=== PATIENT | female | born 1970 | race Caucasian/White ===

== ENCOUNTER 2018-04-04 10:04 | Emergency (ER) | payer MEDICAID ==
[2018-04-04 10:21] VITALS: BP 106/62
[2018-04-04] MEDS ORDERED: GENTAMICIN EACHEYE STA (11:55)
--- NOTE | 2018-04-04 11:59 | ED Physician Documentation ---
PD HPI OPHTHO - Stated complaint Stated Complaint: BILAT EYE IRRITATION - Chief complaint Chief Complaint: Heent - History obtained from History obtained from: Patient - History of Present Illness Timing - onset: How many days ago (2) Timing - duration: Days (2) Timing - details: Still present Associated symptoms: Redness, Discharge Contributing factors: Exposed to conjunctivitis Similar symptoms before: Has not had sx before - Additional information Additional information: The patient is a 47-year-old female who presents with irritation of both eyes. Her symptoms started 2 days ago and it persisted since that time. She reports excessive tearing, as well as crusting of her eyelids. She has been exposed to a dog that was diagnosed with conjunctivitis and underwent treatment. She normally wears glasses, but currently does not have glasses, and states she cannot afford to replace the pair she has lost. Review of Systems Constitutional: denies: Fever Eyes: reports: Discharge, Irritation. denies: Decreased vision Nose: denies: Congestion Throat: denies: Sore throat Respiratory: denies: Cough GI: denies: Nausea, Vomiting Skin: denies: Rash Neurologic: denies: Headache PD PAST MEDICAL HISTORY - Past Medical History Cardiovascular: Hypertension Respiratory: Asthma, Shortness of breath Endocrine/Autoimmune: None GI: GERD HOOD FITTER: None : None HEENT: None Psych: Depression, Anxiety, Bipolar disorder, Panic attacks, Post traumatic stress disorder Musculoskeletal: Osteoarthritis Derm: None - Past Surgical History Past Surgical History: Yes Ortho: Carpal Tunnel surgery /HOOD FITTER: Tubal ligation - Present Medications Home Medications: Ambulatory Orders Medication Instructions Recorded Confirmed Gabapentin [Neurontin] 800 mg PO TID 09/11/13 04/04/18 Meloxicam [Mobic] 15 mg PO DAILY 09/11/13 04/04/18 Montelukast Sodium [Singulair] 10 mg PO DAILY 09/11/13 04/04/18 Pantoprazole Sodium [Protonix] 40 mg PO BID #60 tablet 09/11/13 04/04/18 hydrOXYzine PAMOATE [Vistaril] 100 mg PO BID 09/11/13 04/04/18 clonazePAM [Klonopin] 1 mg BID 11/12/13 04/04/18 Aspirin [Aspirin EC] 81 mg PO DAILY 04/04/18 04/04/18 Lurasidone HCl [Latuda] 60 mg PO DAILY 04/04/18 04/04/18 Tramadol HCl 100 mg PO TID 04/04/18 04/04/18 Valacyclovir HCl [Valacyclovir] 1,000 mg PO DAILY PRN 04/04/18 04/04/18 - Allergies Allergies/Adverse Reactions: Allergies Allergy/AdvReac Type Severity Reaction Status Date / Time carbamazepine [From Tegretol] Allergy Rash Verified 04/04/18 10:23 erythromycin base Allergy Emesis Verified 04/04/18 10:23 [Erythromycin Base] ketorolac [From Toradol] Allergy Rash Verified 04/04/18 10:23 latex Allergy Rash Verified 04/04/18 10:23 Tetracyclines Allergy Rash Verified 04/04/18 10:23 - Social History Does the pt smoke?: No Smoking Status: Never smoker Does the pt drink ETOH?: No Does the pt have substance abuse?: No - Immunizations Immunizations are current?: Yes - POLST Patient has POLST: No PD ED PE NORMAL - Vitals Vital signs reviewed: Yes (normal) - General General: Alert and oriented X 3, Well developed/nourished - HEENT HEENT: Atraumatic, PERRL, EOMI, Ears normal, Pharynx benign, Other (Conjunctival erythema bilaterally, with excessive tearing. There is no purulent discharge detected. Visual acuity is 20/50 in each eye (without glasses). There is no swelling of the eyelids.) - Neck Neck: Supple, no meningeal sign, No adenopathy - Respiratory Respiratory: No respiratory distress - Derm Derm: No rash - Neuro Neuro: Alert and oriented X 3, Normal speech Results - Vitals Vitals: Oxygen O2 Source Room air PD MEDICAL DECISION MAKING - ED course Complexity details: considered differential, d/w patient ED course: The patient's presentation is most consistent with bilateral conjunctivitis. Her presentation does not suggest ocular foreign body, glaucoma, or uveitis. Treatment in the emergency department included administration of gentamicin ophthalmic ointment in each eye. The remainder of the tube was dispensed for her use at home. I discussed with her the expected course of illness, outpatient treatment and follow-up, as well as potentially worrisome signs or symptoms that should prompt reevaluation in the emergency department. Departure - Departure Disposition: 01 Home, Self Care Clinical Impression: Bilateral conjunctivitis Qualifiers: Conjunctivitis type: unspecified Qualified Code(s): H10.9 - Unspecified conjunctivitis Condition: Stable Instructions: ED Conjunctivitis Nonspecific Follow-Up: Zeeshan You MD [Primary Care Provider] - Comments: There is apply antibiotic ointment in each eye 4 times daily today and tomorrow. Follow-up with your primary physician or return to the emergency department if you develop increasing irritation in your eyes, or otherwise worsening symptoms. Discharge Date/Time: 04/04/18 12:12
== END 2018-04-04 12:12 | disposition home or self-care (01) ==
LOC: ED 10:04
DX: H10.9 Unspecified conjunctivitis (principal); I10 Essential (primary) hypertension; Z79.1 Long term (current) use of non-steroidal anti-inflammatories (NSAID); Z79.82 Long term (current) use of aspirin
CPT/HCPCS: 99282; 99283; A9270

== ENCOUNTER 2018-06-21 15:23 | Emergency (ER) | payer MEDICAID ==
--- NOTE | 2018-06-21 15:31 | ED Physician Documentation ---
PD HPI ALTERED MENTAL STATUS - Stated complaint Stated Complaint: DIZZY,DRY MOUTH - Chief complaint Chief Complaint: Neuro - History obtained from History obtained from: Patient PD PAST MEDICAL HISTORY - Past Medical History Cardiovascular: Hypertension Respiratory: Asthma, Shortness of breath Endocrine/Autoimmune: None GI: GERD RESEARCH STATISTICIAN: None : None HEENT: None Psych: Depression, Anxiety, Bipolar disorder, Panic attacks, Post traumatic stress disorder Musculoskeletal: Osteoarthritis Derm: None - Past Surgical History Past Surgical History: Yes Ortho: Carpal Tunnel surgery /RESEARCH STATISTICIAN: Tubal ligation - Present Medications Home Medications: Ambulatory Orders Medication Instructions Recorded Confirmed Gabapentin [Neurontin] 800 mg PO TID 09/11/13 06/21/18 Meloxicam [Mobic] 15 mg PO DAILY 09/11/13 06/21/18 Montelukast Sodium [Singulair] 10 mg PO DAILY 09/11/13 06/21/18 Pantoprazole Sodium [Protonix] 40 mg PO BID #60 tablet. 09/11/13 06/21/18 hydrOXYzine PAMOATE [Vistaril] 100 mg PO BID 09/11/13 06/21/18 clonazePAM [Klonopin] 1 mg PO BID 11/12/13 06/21/18 Aspirin [Aspirin EC] 81 mg PO DAILY 04/04/18 06/21/18 Lurasidone HCl [Latuda] 60 mg PO DAILY 04/04/18 06/21/18 Tramadol HCl 100 mg PO TID 04/04/18 06/21/18 Valacyclovir HCl [Valacyclovir] 1,000 mg PO DAILY PRN 04/04/18 06/21/18 - Allergies Allergies/Adverse Reactions: Allergies Allergy/AdvReac Type Severity Reaction Status Date / Time carbamazepine [From Tegretol] Allergy Rash Verified 04/04/18 10:23 erythromycin base Allergy Emesis Verified 04/04/18 10:23 [Erythromycin Base] ketorolac [From Toradol] Allergy Rash Verified 04/04/18 10:23 latex Allergy Rash Verified 04/04/18 10:23 Tetracyclines Allergy Rash Verified 06/21/18 15:29 - Social History Does the pt smoke?: No Smoking Status: Never smoker Does the pt drink ETOH?: No Does the pt have substance abuse?: No - Immunizations Immunizations are current?: Yes - POLST Patient has POLST: No Results - Vitals Vitals: Vital Signs - 24 hr 06/21/18 15:27 Temperature 35.8 C L Heart Rate 88 Respiratory 18 Rate Blood Pressure 143/77 H O2 Saturation 95 Oxygen O2 Source Room air
[2018-06-21] MEDS ORDERED: SODIUM CHLORIDE 0.9% 1,000 ML IV ONE (16:05)
[2018-06-21 16:35] LABS: BASOPHILS % (AUTO) 0.8 %; EOSINOPHILS # (AUTO) 0.2 10^3/uL (0.0-0.7); EOSINOPHILS % (AUTO) 4.9 %; HGB - HEMOGLOBIN 12.3 g/dL (12.0-16.0); LYMPHOCYTES # (AUTO) 1.8 10^3/uL (1.5-3.5); LYMPHOCYTES % (AUTO) 35.8 %; MEAN CORPUSCULAR HEMOGLOBIN 27.1 pg (27.0-31.0); MEAN CORPUSCULAR HGB CONC 32.7 g/dL (32.0-36.0); MEAN CORPUSCULAR VOLUME 82.7 fL (81.0-99.0); MEAN PLATELET VOLUME 7.6 fL (7.9-10.8); MONOCYTES # (AUTO) 0.3 10^3/uL (0.0-1.0); MONOCYTES % (AUTO) 5.2 %; NEUTROPHILS # (AUTO) 2.7 10^3/uL (1.5-6.6); NEUTROPHILS % (AUTO) 53.3 %; PLT - PLATELET COUNT 180 10^3/uL (130-450); RED BLOOD COUNT 4.53 10^6/uL (4.20-5.40); RED CELL DISTRIBUTION WIDTH 14.6 % (12.0-15.0)
[2018-06-21 16:50] LABS: MUDS CUTOFF CONCENTRATIONS CUTOFF CONC BELOW:
[2018-06-21 17:01] LABS: ALBUMIN 4.1 g/dL (3.2-5.5); ALBUMIN/GLOBULIN RATIO 1.4 (1.0-2.2); ALKALINE PHOSPHATASE 57 IU/L (42-121); ALT ALANINE AMINOTRANSFERASE 16 IU/L (10-60); AST ASPARTATE AMINOTRANSFERASE 17 IU/L (10-42); BILIRUBIN,TOTAL 0.4 mg/dL (0.2-1.0); BUN - BLOOD UREA NITROGEN 18 mg/dL (6-20); CALCIUM 9.4 mg/dL (8.5-10.3); CARBON DIOXIDE - CO2 26 mmol/L (21-32); CHLORIDE 105 mmol/L (101-111); GFR - MDRD 59 (>89); GLUCOSE 97 mg/dL (70-100); LIPASE 29 U/L (22-51); MAGNESIUM 2.2 mg/dL (1.7-2.8); SODIUM 139 mmol/L (135-145)
[2018-06-21 17:16] LABS: AMPHETAMINE SCREEN,URINE NEGATIVE (NEGATIVE); BENZODIAZEPINES SCREEN, URINE POSITIVE (NEGATIVE); COCAINE SCREEN URINE NEGATIVE (NEGATIVE); LEUKOCYTE ESTERASE, URINE SMALL (NEGATIVE); METHADONE SCREEN, URINE NEGATIVE (NEGATIVE); METHAMPHETAMINES SCREEN, URINE NEGATIVE (NEGATIVE); NITRITE,URINE POSITIVE (NEGATIVE); OCCULT BLOOD,URINE NEGATIVE (NEGATIVE); OPIATE SCREEN, URINE NEGATIVE (NEGATIVE); OXYCODONE SCREEN, URINE NEGATIVE (NEGATIVE); PROPOXYPHENE SCREEN, URINE NEGATIVE (NEGATIVE); TRICYCLIC ANTIDEPRESSANT,URINE NEGATIVE (NEGATIVE)
[2018-06-21 17:21] LABS: BILIRUBIN,URINE NEGATIVE (NEGATIVE); CLARITY,URINE HAZY (CLEAR); ICTOTEST,URINE NEGATIVE
[2018-06-21 17:24] LABS: CORTISOL 3.1 ug/dL
[2018-06-21 17:27] LABS: THYROID STIMULATING HORMONE 1.28 uIU/mL (0.34-5.60)
[2018-06-21 17:58] LABS: BACTERIA,URINE Many /HPF (None Seen); RBC,URINE 0-5 /HPF (0-5); SQUAMOUS EPITHELIAL CELL,UR MANY Squamous (<= Few)
[2018-06-21] MEDS ORDERED: cefTRIAXone 1 GM VIAL IVP STA (18:29)
--- NOTE | 2018-06-21 18:31 | ED Physician Documentation ---
PD HPI ALTERED MENTAL STATUS - Stated complaint Stated Complaint: DIZZY,DRY MOUTH - Chief complaint Chief Complaint: Neuro - History obtained from History obtained from: Patient, Family - History of Present Illness Timing - onset: How many days ago (several days to a week) Timing - duration: Days Timing - details: Gradual onset, Still present, Waxing and waning Quality / character: Less responsive (sleepy), Confused, Other (complains of dry mouth and lightheaded; daughter says she is sleepy and off balance walking.) Associated symptoms: General weakness, Other (weight loss of 60-70 lbs over the past 3-4 months without dieting per se.). No: Fever, Headache, Stiff neck, Dyspnea, Cough, NVD Contributing factors: No: Diabetic Basline status: Alert and oriented X 3, Ambulatory Similar symptoms before: Has not had sx before Recently seen: Not recently seen Review of Systems Constitutional: denies: Fever, Chills, Myalgias Nose: denies: Rhinorrhea / runny nose, Congestion Throat: denies: Sore throat Respiratory: denies: Cough GI: reports: Other (less appetite for past 2-3 months). denies: Abdominal Pain, Nausea, Vomiting, Diarrhea : denies: Dysuria, Frequency Skin: denies: Rash, Lesions Neurologic: reports: Generalized weakness. denies: Focal weakness, Numbness, Near syncope, Confused PD PAST MEDICAL HISTORY - Past Medical History Past Medical History: Yes Cardiovascular: Hypertension Respiratory: Asthma, Shortness of breath Endocrine/Autoimmune: None GI: GERD REC THERAPIST: None : None HEENT: None Psych: Depression, Anxiety, Bipolar disorder, Panic attacks, Post traumatic stress disorder Musculoskeletal: Osteoarthritis Derm: None - Past Surgical History Past Surgical History: Yes Ortho: Carpal Tunnel surgery /REC THERAPIST: Tubal ligation - Present Medications Home Medications: Ambulatory Orders Medication Instructions Recorded Confirmed Gabapentin [Neurontin] 800 mg PO TID 09/11/13 06/21/18 Meloxicam [Mobic] 15 mg PO DAILY 09/11/13 06/21/18 Montelukast Sodium [Singulair] 10 mg PO DAILY 09/11/13 06/21/18 Pantoprazole Sodium [Protonix] 40 mg PO BID #60 tablet. 09/11/13 06/21/18 hydrOXYzine PAMOATE [Vistaril] 100 mg PO BID 09/11/13 06/21/18 clonazePAM [Klonopin] 1 mg PO BID 11/12/13 06/21/18 Aspirin [Aspirin EC] 81 mg PO DAILY 04/04/18 06/21/18 Lurasidone HCl [Latuda] 60 mg PO DAILY 04/04/18 06/21/18 Tramadol HCl 100 mg PO TID 04/04/18 06/21/18 Valacyclovir HCl [Valacyclovir] 1,000 mg PO DAILY PRN 04/04/18 06/21/18 Cephalexin [Keflex] 500 mg PO TID #20 capsule 06/21/18 - Allergies Allergies/Adverse Reactions: Allergies Allergy/AdvReac Type Severity Reaction Status Date / Time carbamazepine [From Tegretol] Allergy Rash Verified 04/04/18 10:23 erythromycin base Allergy Emesis Verified 04/04/18 10:23 [Erythromycin Base] ketorolac [From Toradol] Allergy Rash Verified 04/04/18 10:23 latex Allergy Rash Verified 04/04/18 10:23 Tetracyclines Allergy Rash Verified 06/21/18 15:29 - Social History Does the pt smoke?: No Smoking Status: Never smoker Does the pt drink ETOH?: No Does the pt have substance abuse?: No - Immunizations Immunizations are current?: Yes - POLST Patient has POLST: No PD ED PE NORMAL - Vitals Vital signs reviewed: Yes - General General: No acute distress, Well developed/nourished. No: Alert and oriented X 3 (alert and oriented but somewhat somnolent. ) - HEENT HEENT: PERRL, EOMI (nonicteric), Moist mucous membranes, Pharynx benign - Neck Neck: Supple, no meningeal sign, No adenopathy - Cardiac Cardiac: RRR, No murmur - Respiratory Respiratory: Clear bilaterally - Abdomen Abdomen: Normal bowel sounds, Soft, Non tender, Non distended - Female Female : Deferred - Rectal Rectal: Deferred - Back Back: No CVA TTP - Derm Derm: Normal color, Warm and dry - Extremities Extremities: No tenderness to palpate, Normal ROM s pain, No edema, No calf tenderness / cord - Neuro Neuro: Alert and oriented X 3, No motor deficit, Normal speech Eye Opening: To Voice Motor: Obeys Commands Verbal: Oriented GCS Score: 14 Results - Vitals Vitals: Oxygen O2 Source Room air - Labs Labs: Laboratory Tests 06/21/18 06/21/18 06/21/18 16:30 16:30 16:30 WBC 5.0 RBC 4.53 Hgb 12.3 Hct 37.5 MCV 82.7 MCH 27.1 MCHC 32.7 RDW 14.6 Plt Count 180 MPV 7.6 L Neut # (Auto) 2.7 Lymph # (Auto) 1.8 [place] # (Auto) 0.3 Eos # (Auto) 0.2 Baso # (Auto) 0.0 Absolute Nucleated RBC 0.00 Nucleated RBC % 0.0 ESR 15 Sodium 139 Potassium 3.7 Chloride 105 Carbon Dioxide 26 Anion Gap 8.0 BUN 18 Creatinine 1.0 Estimated GFR (MDRD) 59 L Glucose 97 Calcium 9.4 Magnesium 2.2 Total Bilirubin 0.4 AST 17 ALT 16 Alkaline Phosphatase 57 Total Protein 7.0 Albumin 4.1 Globulin 2.9 Albumin/Globulin Ratio 1.4 Lipase 29 TSH Cortisol Urine Color Urine Clarity Urine pH Ur Specific [place] Urine Protein Urine Glucose (UA) Urine Ketones Urine Occult Blood Urine Nitrite Urine Bilirubin Urine Urobilinogen Ur Leukocyte Esterase Urine RBC Urine WBC Ur Squamous Epith Cells Urine Bacteria Ur Microscopic Review Urine Culture Comments Urine Opiates Screen Ur Oxycodone Screen Urine Methadone Screen Ur Propoxyphene Screen Ur Barbiturates Screen Ur Tricyclics Screen Ur Phencyclidine Scrn Ur Amphetamine Screen U Methamphetamines Scrn U Benzodiazepines Scrn Urine Cocaine Screen U Cannabinoids Screen Ethyl Alcohol < 5.0 06/21/18 06/21/18 16:30 16:47 WBC RBC Hgb Hct MCV MCH MCHC RDW Plt Count MPV Neut # (Auto) Lymph # (Auto) [place] # (Auto) Eos # (Auto) Baso # (Auto) Absolute Nucleated RBC Nucleated RBC % ESR Sodium Potassium Chloride Carbon Dioxide Anion Gap BUN Creatinine Estimated GFR (MDRD) Glucose Calcium Magnesium Total Bilirubin AST ALT Alkaline Phosphatase Total Protein Albumin Globulin Albumin/Globulin Ratio Lipase TSH 1.28 Cortisol 3.1 Urine Color DK. ORANGE Urine Clarity HAZY Urine pH 5.0 Ur Specific [place] >=1.030 H Urine Protein [employer] Urine Glucose (UA) [employer] Urine Ketones Not Reportable Urine Occult Blood NEGATIVE Urine Nitrite POSITIVE H Urine Bilirubin NEGATIVE Urine Urobilinogen [employer] Ur Leukocyte Esterase SMALL H Urine RBC 0-5 Urine WBC 11-25 H Ur Squamous Epith Cells MANY Squamous H Urine Bacteria Many H Ur Microscopic Review INDICATED Urine Culture Comments NOT INDICATED Urine Opiates Screen NEGATIVE Ur Oxycodone Screen NEGATIVE Urine Methadone Screen NEGATIVE Ur Propoxyphene Screen NEGATIVE Ur Barbiturates Screen NEGATIVE Ur Tricyclics Screen NEGATIVE Ur Phencyclidine Scrn NEGATIVE Ur Amphetamine Screen NEGATIVE U Methamphetamines Scrn NEGATIVE U Benzodiazepines Scrn POSITIVE H Urine Cocaine Screen NEGATIVE U Cannabinoids Screen NEGATIVE Ethyl Alcohol PD MEDICAL DECISION MAKING - ED course Complexity details: considered differential (symptoms seem likely med side effects. She has had large weight loss (without trying, so separate issue and got labs) of 60-70 lbs and so prior doses may be having more effect. Will look at meds to see which likely correlate with symptoms. ), d/w patient Departure - Departure Disposition: 01 Home, Self Care Clinical Impression: Weight loss, Medication side effects UTI (urinary tract infection) Qualifiers: Urinary tract infection type: acute cystitis Hematuria presence: without hematuria Qualified Code(s): N30.00 - Acute cystitis without hematuria Altered mental status Qualifiers: Altered mental status type: stupor Qualified Code(s): R40.1 - Stupor Condition: Stable Record reviewed to determine appropriate education?: Yes Instructions: ED UTI Cystitis Female Follow-Up: Zeeshan You MD [Primary Care Provider] - Prescriptions: Cephalexin [Keflex] 500 mg PO TID #20 capsule Comments: I agree with you that your symptoms are likely related to medications that you are on and likely are needing to have the dosages decreased. At this point I would start with decreasing your gabapentin from 800 mg 3 times a day down to twice a day. Subsequently that can get changed to 600 mg 3 times a day on re- prescription but for now will use the medications you have. I would also decrease your hydroxyzine from 100 mg twice a day to 50 mg twice a day. For now keep your other medications the same. Drink lots of fluids. He also have a bladder infection and take cephalexin 3 times a day for a week. Follow-up with your primary care this coming week as planned and see how much better you are feeling.So the summary is: cephalexin 3 times a day for a week Decrease gabapentin 800 from three times daily to twice a day Decrease hydroxyzine from 100 mg twice a day down to 50 mg twice a day Discharge Date/Time: 06/21/18 18:49
[2018-06-21 18:44] VITALS: BP 132/83
== END 2018-06-21 18:49 | disposition home or self-care (01) ==
LOC: ED 15:23
DX: R63.4 Abnormal weight loss (principal); T50.905A Adverse effect of unspecified drugs, medicaments and biological substances, initial encounter; N30.00 Acute cystitis without hematuria; R40.1 Stupor; I10 Essential (primary) hypertension
CPT/HCPCS: 36415; 80053; 80306; 80320; 81001; 81003; 82533; 83690; 83735; 84443; 85025; 85651; 87086; 93005; 96361; 96374; 99283; 99284

== ENCOUNTER 2019-06-17 20:07 | Emergency (ER) | payer MEDICAID ==
[2019-06-17 20:31] LABS: BASOPHILS % (AUTO) 0.4 %; EOSINOPHILS # (AUTO) 0.1 10^3/uL (0.0-0.7); EOSINOPHILS % (AUTO) 1.9 %; HGB - HEMOGLOBIN 14.7 g/dL (12.0-16.0); LYMPHOCYTES # (AUTO) 1.2 10^3/uL (1.5-3.5); LYMPHOCYTES % (AUTO) 17.5 %; MEAN CORPUSCULAR HEMOGLOBIN 28.9 pg (27.0-31.0); MEAN CORPUSCULAR HGB CONC 32.5 g/dL (32.0-36.0); MONOCYTES # (AUTO) 0.2 10^3/uL (0.0-1.0); MONOCYTES % (AUTO) 3.6 %; NEUTROPHILS # (AUTO) 5.1 10^3/uL (1.5-6.6); NEUTROPHILS % (AUTO) 76.3 %; PLT - PLATELET COUNT 222 10^3/uL (130-450); RED BLOOD COUNT 5.09 10^6/uL (4.20-5.40); RED CELL DISTRIBUTION WIDTH 13.2 % (12.0-15.0); WHITE BLOOD COUNT 6.7 x10^3/uL (4.8-10.8)
[2019-06-17 20:49] LABS: ALBUMIN 4.6 g/dL (3.2-5.5); ALBUMIN/GLOBULIN RATIO 1.2 (1.0-2.2); BILIRUBIN,TOTAL 2.9 mg/dL (0.2-1.0); CALCIUM 9.4 mg/dL (8.5-10.3); CREATININE 0.9 mg/dL (0.4-1.0); TOTAL PROTEIN 8.3 g/dL (6.7-8.2)
--- NOTE | 2019-06-17 20:54 | XRAY Report ---
Reason: chest pain Procedure Date: 06/17/2019 Accession Number: [id number] / [id number] Procedure: XR - Chest 1 View X-Ray CPT Code: 03304 Final Report FULL RESULT: EXAM: CHEST RADIOGRAPHY EXAM DATE: 06/17/2019 08:44 PM. CLINICAL HISTORY: Chest pain. Shortness of breath. Vomiting. COMPARISON: None. TECHNIQUE: Upright AP view. FINDINGS: Lungs/Pleura: No focal opacities evident. No pleural effusion. No pneumothorax. Mediastinum: Within exam limitations, the cardiomediastinal contour is normal. Other: No pneumoperitoneum or gaseous distention of the stomach. IMPRESSION: Normal single view chest. RADIA
[2019-06-17] MEDS ORDERED: MORPHINE 2 MG/ML CARPUJECT IVP STA (21:19)
[2019-06-17] MEDS ORDERED: ONDANSETRON 4 MG/2 ML VIAL IVP STA (21:38)
--- NOTE | 2019-06-17 22:19 | ED Physician Documentation ---
History of Present Illness - Stated complaint Stated Complaint: CP - Chief complaint Chief Complaint: Cardiac - History obtained from History obtained from: Patient (Patient with history anxiety presented with substernal chest pain that is sharp in nature for last 3 days. That has been intermittent nausea sensation that is associated with chest pain has been intermittent. Nonradiating. No fever no chills no cough no congestion. In emergency room patient is alert and oriented x3. CardiovascularRisk factor: none) - History of Present Illness Timing: How many days ago (3) Pain level max: 6 Pain level now: 6 Review of Systems Ten Systems: 10 systems reviewed and negative Constitutional: reports: Reviewed and negative Eyes: reports: Reviewed and negative Ears: reports: Reviewed and negative Nose: reports: Reviewed and negative Throat: reports: Reviewed and negative Cardiac: reports: Chest pain / pressure Respiratory: reports: Reviewed and negative GI: reports: Reviewed and negative : reports: Reviewed and negative Skin: reports: Reviewed and negative Musculoskeletal: reports: Reviewed and negative Neurologic: reports: Reviewed and negative Psychiatric: reports: Reviewed and negative Endocrine: reports: Reviewed and negative Immunocompromised: reports: Reviewed and negative PD PAST MEDICAL HISTORY - Past Medical History Past Medical History: Yes Cardiovascular: Hypertension Respiratory: Asthma, Shortness of breath Endocrine/Autoimmune: None GI: GERD LAB COORDINATOR: None : None HEENT: None Psych: Depression, Anxiety, Bipolar disorder, Panic attacks, Post traumatic stress disorder Musculoskeletal: Osteoarthritis Derm: None - Past Surgical History Past Surgical History: Yes Ortho: Carpal Tunnel surgery /LAB COORDINATOR: Tubal ligation - Present Medications Home Medications: Ambulatory Orders Medication Instructions Recorded Confirmed Gabapentin [Neurontin] 800 mg PO TID 09/11/13 06/21/18 Meloxicam [Mobic] 15 mg PO DAILY 09/11/13 06/21/18 Montelukast Sodium [Singulair] 10 mg PO DAILY 09/11/13 06/21/18 Pantoprazole Sodium [Protonix] 40 mg PO BID #60 tablet. 09/11/13 06/21/18 hydrOXYzine PAMOATE [Vistaril] 100 mg PO BID 09/11/13 06/21/18 clonazePAM [Klonopin] 1 mg PO BID 11/12/13 06/21/18 Aspirin [Aspirin EC] 81 mg PO DAILY 04/04/18 06/21/18 Lurasidone HCl [Latuda] 60 mg PO DAILY 04/04/18 06/21/18 Tramadol HCl 100 mg PO TID 04/04/18 06/21/18 Valacyclovir HCl [Valacyclovir] 1,000 mg PO DAILY PRN 04/04/18 06/21/18 Cephalexin [Keflex] 500 mg PO TID #20 capsule 06/21/18 Ondansetron Odt [Zofran] 4 mg TL Q6H PRN #10 tablet 06/17/19 traMADol [Ultram] 50 mg PO ONCE #10 tablet 06/17/19 - Allergies Allergies/Adverse Reactions: Allergies Allergy/AdvReac Type Severity Reaction Status Date / Time carbamazepine [From Tegretol] Allergy Rash Verified 04/04/18 10:23 erythromycin base Allergy Emesis Verified 04/04/18 10:23 [Erythromycin Base] ketorolac [From Toradol] Allergy Rash Verified 04/04/18 10:23 latex Allergy Rash Verified 04/04/18 10:23 Tetracyclines Allergy Rash Verified 06/21/18 15:29 - Social History Does the pt smoke?: No Smoking Status: Never smoker Does the pt drink ETOH?: No Does the pt have substance abuse?: No - Immunizations Immunizations are current?: Yes - POLST Patient has POLST: No PD ED PE NORMAL - Vitals Vital signs reviewed: Yes - General General: Alert and oriented X 3, No acute distress - HEENT HEENT: PERRL - Neck Neck: Supple, no meningeal sign - Cardiac Cardiac: RRR, No murmur - Respiratory Respiratory: Clear bilaterally - Abdomen Abdomen: Normal bowel sounds, Soft, Non tender, Non distended - Derm Derm: Warm and dry - Extremities Extremities: No deformity - Neuro Neuro: Alert and oriented X 3 Eye Opening: Spontaneous Motor: Obeys Commands Verbal: Oriented GCS Score: 15 - Psych Psych: Normal mood, Normal affect Results - Vitals Vitals: Vital Signs - 24 hr 06/17/19 06/17/19 06/17/19 20:10 22:10 23:56 Temperature 36.2 C L 37.0 C Heart Rate 74 62 76 Respiratory 18 21 18 Rate Blood Pressure 117/79 109/80 99/76 O2 Saturation 99 100 98 Oxygen O2 Source Room air - EKG (time done) No standard instances Rate: Rate (enter#) (59) Rhythm: NSR [place]: Normal Intervals: Normal ID QRS: Normal Ischemia: Normal ST segments - Labs Labs: Laboratory Tests 06/17/19 06/17/19 06/17/19 20:25 20:25 20:25 WBC 6.7 RBC 5.09 Hgb 14.7 Hct 45.3 MCV 89.0 MCH 28.9 MCHC 32.5 RDW 13.2 Plt Count 222 MPV 10.0 Neut # (Auto) 5.1 Lymph # (Auto) 1.2 L [place] # (Auto) 0.2 Eos # (Auto) 0.1 Baso # (Auto) 0.0 Absolute Nucleated RBC 0.00 Nucleated RBC % 0.0 D-Dimer 793.9 H Sodium 139 Potassium 3.5 Chloride 102 Carbon Dioxide 25 Anion Gap 12.0 BUN 17 Creatinine 0.9 Estimated GFR (MDRD) 67 L Glucose 120 H Calcium 9.4 Total Bilirubin 2.9 H AST 330 H ALT 418 H Alkaline Phosphatase 178 H Troponin I High Sens B-Natriuretic Peptide Total Protein 8.3 H Albumin 4.6 Globulin 3.7 Albumin/Globulin Ratio 1.2 Lipase 39 06/17/19 06/17/19 20:25 20:25 WBC RBC Hgb Hct MCV MCH MCHC RDW Plt Count MPV Neut # (Auto) Lymph # (Auto) [place] # (Auto) Eos # (Auto) Baso # (Auto) Absolute Nucleated RBC Nucleated RBC % D-Dimer Sodium Potassium Chloride Carbon Dioxide Anion Gap BUN Creatinine Estimated GFR (MDRD) Glucose Calcium Total Bilirubin AST ALT Alkaline Phosphatase Troponin I High Sens 2.9 B-Natriuretic Peptide 18 Total Protein Albumin Globulin Albumin/Globulin Ratio Lipase PD MEDICAL DECISION MAKING - ED course ED course: This 40-year-old lady presented to the emergency room with chest pain that is been intermittent for the last 3 days. She has no cardiac risk factor. Initial differential diagnosis includes acute coronary syndrome, pleurisy, pneumonia, pneumothorax, pulmonary embolism. Patient was reassessed at 1130 and disclosed negative troponin, negative chest x-ray, there was elevated d-dimer however CT angios chest has ruled out pulmonary embolism. She is asked to take the Zofran for nausea vomiting, tramadol for the discomfort To epigastric areaor and follow-up with primary care doctor for further evaluation and or referral to livestock judging coach for outpatient cardiac stress test. At this time she told me she used to see a doctor who had recommended outpatient study she is just not able to follow through. I strongly recommend her to follow-up and follow through with a cardiac stress test. She understood and agreed Departure - Departure Disposition: 01 Home, Self Care Clinical Impression: Atypical chest pain Nausea and vomiting Qualifiers: Vomiting type: unspecified Vomiting Intractability: non-intractable Qualified Code(s): R11.2 - Nausea with vomiting, unspecified Condition: Stable Instructions: ED Chest Pain Atypical Unkn Cause, ED Nausea Vomiting Follow-Up: Zeeshan You MD [Primary Care Provider] - Prescriptions: Ondansetron Odt [Zofran] 4 mg TL Q6H PRN #10 tablet PRN Reason: Nausea / Vomiting traMADol [Ultram] 50 mg PO ONCE #10 tablet Comments: Please follow-up with your primary care doctor for further management which may include cardiology referral for outpatient cardiac stress test. As far as nausea vomiting, please take Zofran as needed for nausea vomiting and drink plenty of fluids. Return to the emergency roomOr contact your doctor if symptoms gradually worsen and not improving over the next 5 to 7 days. Discharge Date/Time: 06/17/19 23:57
[2019-06-17] MEDS ORDERED: IOVERSOL 320 100 ML VIAL IVP ONE ×2 (22:22→22:53)
--- NOTE | 2019-06-17 23:21 | CT Report ---
Reason: chest pain, elevated d-dimer Procedure Date: 06/17/2019 Accession Number: [id number] / [id number] Procedure: CT - ANGIO CHEST W/WO CPT Code: Final Report FULL RESULT: EXAM: CT ANGIOGRAM CHEST EXAM DATE: 06/17/2019 10:55 PM. CLINICAL HISTORY: Chest pain, elevated d-dimer. COMPARISON: None. TECHNIQUE: Routine helical imaging was performed through the chest in the pulmonary arterial phase. IV Contrast: OPTI 320 80ML. Reconstructions: Coronal 3-D MIP reconstructions. Sagittal and coronal. In accordance with CT protocol optimization, one or more of the following dose reduction techniques were utilized for this exam: automated exposure control, adjustment of mA and/or KV based on patient size, or use of iterative reconstructive technique. FINDINGS: Pulmonary Arteries: Diagnostic quality: Adequate through the segmental arteries. No evidence for acute or chronic pulmonary emboli. Lungs/Pleura: No suspicious nodularity, mass, or consolidation. No pleural effusions. No endobronchial or endotracheal lesion. Mediastinum: Imaged portions of the thyroid are grossly unremarkable. Thoracic aorta and main pulmonary artery are normal caliber. Heart size is within normal limits. No pericardial effusion. Small sliding hiatal hernia. Lymph Nodes: No mediastinal, hilar, or axillary adenopathy. Bones: No suspicious osseous lesions. Visualized chest wall is grossly unremarkable. Partially Imaged Upper Abdomen: No acute abnormalities. IMPRESSION: No acute or chronic pulmonary embolus. RADIA
[2019-06-17 23:57] VITALS: BP 99/76
== END 2019-06-17 23:57 | disposition home or self-care (01) ==
LOC: ED 20:07
DX: R07.89 Other chest pain (principal); R11.2 Nausea with vomiting, unspecified; R79.89 Other specified abnormal findings of blood chemistry; I10 Essential (primary) hypertension; Z79.82 Long term (current) use of aspirin
CPT/HCPCS: 36415; 71045; 71275; 80053; 83690; 83880; 84484; 85025; 85379; 93005; 99284; Q9967

== ENCOUNTER 2019-09-22 09:52 | Outpatient (CLI) | payer MEDICAID ==
--- NOTE | 2019-09-22 17:03 | XRAY Report ---
Reason: PAIN IN UNSPECIFIED JOINT Procedure Date: 09/22/2019 Accession Number: [id number] / [id number] Procedure: XR - Ankle 3 View RT CPT Code: Final Report FULL RESULT: EXAM: RIGHT ANKLE RADIOGRAPHY EXAM DATE: 09/22/2019 10:18 AM. CLINICAL HISTORY: LATERAL ANKLE PAIN AFTER TWISTING INJURY STEPPING INTO A HOLE. COMPARISON: None. TECHNIQUE: 3 views. FINDINGS: Bones: Small nonspecific well-corticated plantar calcaneal enthesophyte. No fracture or focal bone lesion. Joints: Normal. No effusion. No subluxations. The ankle mortise is normally aligned. Soft Tissues: Mild lateral ankle soft tissue swelling/fat stranding. IMPRESSION: No fracture or malalignment. RADIA
== END 2019-09-22 09:53 | disposition home or self-care (01) ==
LOC: DI 09:52
PROVIDERS: ATTEND Internal Medicine
DX: M25.571 Pain in right ankle and joints of right foot (principal)

== ENCOUNTER 2021-05-05 06:16 | Emergency (ER) | payer MEDICAID ==
[2021-05-05 06:25] VITALS: BP 115/63
[2021-05-05 06:48] LABS: GLUCOSE, URINE (UA) NEGATIVE (NEGATIVE); KETONES,URINE (UA) TRACE mg/dL (NEGATIVE); LEUKOCYTE ESTERASE, URINE LARGE (NEGATIVE); NITRITE,URINE NEGATIVE (NEGATIVE); OCCULT BLOOD,URINE LARGE (NEGATIVE); PROTEIN,URINE 100 mg/dL (NEGATIVE); UROBILINOGEN,URINE 2 E.U./dL (NORMAL)
[2021-05-05 07:01] LABS: BILIRUBIN,URINE NEGATIVE (NEGATIVE); CLARITY,URINE CLOUDY (CLEAR); ICTOTEST,URINE NEGATIVE
[2021-05-05 07:02] LABS: BACTERIA,URINE Few /HPF (None Seen); RBC,URINE TNTC /HPF (0-5); SQUAMOUS EPITHELIAL CELL,UR NONE SEEN (<= Few); WBC,URINE >25 /HPF (0-5)
--- NOTE | 2021-05-05 07:03 | ED Physician Documentation ---
PD HPI FEMALE - Stated complaint Stated Complaint: FEMALE - Chief complaint Chief Complaint: UTI - History obtained from History obtained from: Patient - History of Present Illness Timing - onset: Yesterday Timing - duration: Days (2) Timing - details: Abrupt onset, Still present Associated symptoms: Dysuria, Urinary frequency, Hematuria. 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 : None HEENT: None Psych: Depression, Anxiety, Bipolar disorder, Panic attacks, Post traumatic stress disorder Musculoskeletal: Osteoarthritis Derm: None - Past Surgical History Past Surgical History: Yes Ortho: Carpal Tunnel surgery /ROVING DEPARTMENT END FINDER: Tubal ligation - Present Medications Home Medications: Ambulatory Orders Medication Instructions Recorded Confirmed Gabapentin [Neurontin] 800 mg PO TID 09/11/13 06/21/18 Meloxicam [Mobic] 15 mg PO DAILY 09/11/13 06/21/18 Montelukast Sodium [Singulair] 10 mg PO DAILY 09/11/13 06/21/18 Pantoprazole Sodium [Protonix] 40 mg PO BID #60 tablet. 09/11/13 06/21/18 hydrOXYzine PAMOATE [Vistaril] 100 mg PO BID 09/11/13 06/21/18 clonazePAM [Klonopin] 1 mg PO BID 11/12/13 06/21/18 Aspirin [Aspirin EC] 81 mg PO DAILY 04/04/18 06/21/18 Lurasidone HCl [Latuda] 60 mg PO DAILY 04/04/18 06/21/18 Tramadol HCl 100 mg PO TID 04/04/18 06/21/18 Valacyclovir HCl [Valacyclovir] 1,000 mg PO DAILY PRN 04/04/18 06/21/18 cephALEXin [Keflex] 500 mg PO TID #20 capsule 06/21/18 Ondansetron Odt [Zofran] 4 mg TL Q6H PRN #10 tablet 06/17/19 traMADol [Ultram] 50 mg PO ONCE #10 tablet 06/17/19 Phenazopyridine HCl [Pyridium] 100 mg PO TID PRN #15 tablet 05/05/21 cephALEXin [Keflex] 500 mg PO TID #20 cap 05/05/21 - Allergies Allergies/Adverse Reactions: Allergies Allergy/AdvReac Type Severity Reaction Status Date / Time carbamazepine [From Tegretol] Allergy Rash Verified 04/04/18 10:23 erythromycin base Allergy Emesis Verified 04/04/18 10:23 [Erythromycin Base] ketorolac [From Toradol] Allergy Rash Verified 04/04/18 10:23 latex Allergy Rash Verified 04/04/18 10:23 Tetracyclines Allergy Rash Verified 06/21/18 15:29 - Social History Does the pt smoke?: No Smoking Status: Never smoker Does the pt drink ETOH?: No Does the pt have substance abuse?: No - Immunizations Immunizations are current?: Yes - POLST Patient has POLST: No PD ED PE NORMAL - Vitals Vital signs reviewed: Yes - General General: Alert and oriented X 3, No acute distress, Well developed/nourished - Abdomen Abdomen: Soft, Non tender - Back Back: No CVA TTP - Derm Derm: Normal color, Warm and dry Results - Vitals Vitals: Vital Signs - 24 hr 05/05/21 05/05/21 06:21 07:20 Temperature 35.9 C L 35.9 C L Heart Rate 78 80 Respiratory 26 H 16 Rate Blood Pressure 115/63 115/63 O2 Saturation 97 99 Oxygen O2 Source Room air - Labs Labs: Laboratory Tests 05/05/21 06:38 Urine Color DARK YELLOW Urine Clarity CLOUDY Urine pH 6.0 Ur Specific [place] >=1.030 H Urine Protein 100 H Urine Glucose (UA) NEGATIVE Urine Ketones TRACE Urine Occult Blood LARGE H Urine Nitrite NEGATIVE Urine Bilirubin NEGATIVE Urine Urobilinogen 2 H Ur Leukocyte Esterase LARGE H Urine RBC TNTC H Urine WBC >25 H Ur Squamous Epith Cells NONE SEEN Urine Bacteria Few Ur Microscopic Review INDICATED Urine Culture Comments INDICATED PD MEDICAL DECISION MAKING - ED course Complexity details: reviewed results, considered differential, d/w patient Departure - Departure Disposition: 01 Home, Self Care Clinical Impression: Cystitis Condition: Stable Record reviewed to determine appropriate education?: Yes Instructions: ED UTI Cystitis Female Follow-Up: Zeeshan You MD [Primary Care Provider] - Prescriptions: cephALEXin [Keflex] 500 mg PO TID #20 cap Phenazopyridine HCl [Pyridium] 100 mg PO TID PRN #15 tablet PRN Reason: Abdominal Pain Comments: Stay well-hydrated. Cephalexin as directed 3 times a day for the bladder infection. In the short-term you can use phenazopyridine (Pyridium) to help with urinary discomfort. Also add ibuprofen naproxen or Tylenol as needed for pains. Your urine culture should result in a couple of days and will call you if we need to change the antibiotic choice based on that. Recheck if not improving well over the next 2 to 3 days and resolved by 3 to 5 days. Return if worsening symptoms or associated fever vomiting increased abdominal pain or other concerns. I transmitted your prescriptions to [facility] pharmacy. Discharge Date/Time: 05/05/21 07:22
[2021-05-05] MEDS ORDERED: cephALEXin 250 MG CAPSULE PO STA (07:10)
[2021-05-05] MEDS ORDERED: IBUPROFEN 600 MG TABLET PO STA (07:10)
[2021-05-05] MEDS ORDERED: PHENAZOPYRIDINE 100 MG TABLET PO STA (07:10)
== END 2021-05-05 07:22 | disposition home or self-care (01) ==
LOC: ED 06:16
DX: N30.91 Cystitis, unspecified with hematuria (principal); I10 Essential (primary) hypertension; Z79.82 Long term (current) use of aspirin
CPT/HCPCS: 81001; 87086; 87181; 99282; 99283; A9270; 81003

== ENCOUNTER 2021-08-15 09:40 | Outpatient (CLI) | payer MEDICAID | END 2021-08-15 09:41 | disposition critical access hospital (66) | LOC: EMS 09:40 | DX: R06.02 Shortness of breath (principal) | CPT/HCPCS: A0425; A0429; A0999 ==

== ENCOUNTER 2021-08-15 09:43 | Emergency (ER) | payer MEDICAID ==
[2021-08-15] MEDS ORDERED: LORazepam 2 MG/ML VIAL IVP STA (09:52)
--- NOTE | 2021-08-15 09:55 | ED Physician Documentation ---
PD HPI DYSPNEA - Stated complaint Stated Complaint: SOA - Chief complaint Chief Complaint: Resp - History obtained from History obtained from: Patient - Additional information Additional information: The patient comes to the emergency department chief complaint of dyspnea that started yesterday. The patient states it came on somewhat suddenly when she was at rest. She states she had some tightness in her chest but no pain. The patient denies any nausea or vomiting. She has a history of asthma but does not have an inhaler currently. She also has a history of DVT and PE many years ago after an extended hospital stay. She states that she was not found to have an underlying clotting disorder and after you are on anticoagulation, was discontinued on this. She has had no problems since. The patient denies any recent respiratory illnesses. No cough, fever, or chills. She denies any seasonal allergies. The patient is otherwise without complaints. Review of Systems Ten Systems: 10 systems reviewed and negative Constitutional: reports: Reviewed and negative Eyes: reports: Reviewed and negative Ears: reports: Reviewed and negative Nose: reports: Reviewed and negative Throat: reports: Reviewed and negative Cardiac: reports: Reviewed and negative Respiratory: reports: Dyspnea GI: reports: Reviewed and negative : reports: Reviewed and negative Skin: reports: Reviewed and negative Musculoskeletal: reports: Reviewed and negative Neurologic: reports: Reviewed and negative Psychiatric: reports: Reviewed and negative Endocrine: reports: Reviewed and negative Immunocompromised: reports: Reviewed and negative PD PAST MEDICAL HISTORY - Past Medical History Cardiovascular: Hypertension Respiratory: Asthma, Shortness of breath Endocrine/Autoimmune: None GI: GERD 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 09/11/13 08/15/21 hydrOXYzine PAMOATE [Vistaril] 100 mg PO BID 09/11/13 08/15/21 clonazePAM [Klonopin] 1 mg PO BID 11/12/13 08/15/21 Aspirin [Aspirin EC] 81 mg PO DAILY 04/04/18 08/15/21 Lurasidone HCl [Latuda] 60 mg PO DAILY 04/04/18 08/15/21 Tramadol HCl 100 mg PO TID 04/04/18 08/15/21 Valacyclovir HCl [Valacyclovir] 1,000 mg PO DAILY PRN 04/04/18 08/15/21 traMADol [Ultram] 50 mg PO ONCE #10 tablet 06/17/19 08/15/21 Phenazopyridine HCl [Pyridium] 100 mg PO TID PRN #15 tablet 05/05/21 08/15/21 - Allergies Allergies/Adverse Reactions: Allergies Allergy/AdvReac Type Severity Reaction Status Date / Time carbamazepine [From Tegretol] Allergy Rash Verified 08/15/21 09:52 erythromycin base Allergy Emesis Verified 08/15/21 09:52 [Erythromycin Base] ketorolac [From Toradol] Allergy Rash Verified 08/15/21 09:52 latex Allergy Rash Verified 08/15/21 09:52 Tetracyclines Allergy Rash Verified 08/15/21 09:52 - Social History Does the pt smoke?: No Smoking Status: Never smoker Does the pt drink ETOH?: No Does the pt have substance abuse?: No - Immunizations Immunizations are current?: Yes - POLST Patient has POLST: No PD ED PE NORMAL - Vitals Vital signs reviewed: Yes - General General: Alert and oriented X 3, Well developed/nourished, Other (The patient appears slightly anxious, but is able to converse without difficulty. Otherwise no apparent distress.) - HEENT HEENT: Atraumatic, PERRL, EOMI, Moist mucous membranes - Neck Neck: Supple, no meningeal sign - Cardiac Cardiac: RRR, No murmur, Strong equal pulses - Respiratory Respiratory: No respiratory distress, Clear bilaterally, Other (Patient is mildly tachypneic, with respiratory rate around 22, but converses without difficulty, laughing and talking. Lungs are clear. No laboring respirations.) - Abdomen Abdomen: Soft, Non tender, Non distended - Derm Derm: Normal color, Warm and dry, No rash - Extremities Extremities: No deformity - Neuro Neuro: Alert and oriented X 3 - Psych Psych: Normal mood, Normal affect Results - Vitals Vitals: Vital Signs - 24 hr 08/15/21 08/15/21 08/15/21 09:47 12:03 14:19 Temperature 36.1 C L Heart Rate 90 65 78 Respiratory 16 18 16 Rate Blood Pressure 122/80 103/65 110/79 O2 Saturation 97 98 99 08/15/21 08/15/21 16:18 17:01 Temperature Heart Rate 76 Respiratory 18 Rate Blood Pressure 129/95 H O2 Saturation 98 Oxygen O2 Source Room air - Labs Labs: Laboratory Tests 08/15/21 08/15/21 08/15/21 10:05 10:05 10:05 WBC 7.4 RBC 4.22 Hgb 12.1 Hct 36.5 L MCV 86.5 MCH 28.7 MCHC 33.2 RDW 12.3 Plt Count 133 MPV 10.2 Neut # (Auto) 5.2 Lymph # (Auto) 1.5 [place] # (Auto) 0.4 Eos # (Auto) 0.2 Baso # (Auto) 0.0 Absolute Nucleated RBC 0.00 Nucleated RBC % 0.0 PT 11.8 INR 1.1 D-Dimer 1006.2 H Sodium 139 Potassium 3.8 Chloride 106 Carbon Dioxide 23 Anion Gap 10.0 BUN 21 H Creatinine 1.0 Estimated GFR (MDRD) 59 L Glucose 98 Calcium 8.8 Total Bilirubin AST ALT Alkaline Phosphatase Total Protein Albumin Globulin Albumin/Globulin Ratio Lipase Nasal Adenovirus (PCR) Nasal B. parapertussis DNA (PCR) Nasal Coronavir 229E PCR Nasal Coronavir HKU1 PCR Nasal Coronavir NL63 PCR Nasal Coronavir OC43 PCR Nasal Enterovir/Rhinovir PCR Nasal Influenza B PCR Nasal Influenza A PCR Nasal Parainfluen 1 PCR Nasal Parainfluen 2 PCR Nasal Parainfluen 3 PCR Nasal Parainfluen 4 PCR Nasal RSV (PCR) Nasal B.pertussis DNA PCR Nasal C.pneumoniae (PCR) Christopher Human Metapneumo PCR Nasal M.pneumoniae (PCR) Nasal SARS-CoV-2 (PCR) 08/15/21 08/15/21 10:05 13:13 WBC RBC Hgb Hct MCV MCH MCHC RDW Plt Count MPV Neut # (Auto) Lymph # (Auto) [place] # (Auto) Eos # (Auto) Baso # (Auto) Absolute Nucleated RBC Nucleated RBC % PT INR D-Dimer Sodium 145 Potassium 4.0 Chloride 110 Carbon Dioxide 23 Anion Gap 12.0 BUN 20 Creatinine 1.0 Estimated GFR (MDRD) 59 L Glucose 100 Calcium 9.2 Total Bilirubin 0.4 AST 17 ALT 11 Alkaline Phosphatase 41 L Total Protein 6.5 L Albumin 3.5 Globulin 3.0 Albumin/Globulin Ratio 1.2 Lipase 27 Nasal Adenovirus (PCR) NOT DETECTED Nasal B. parapertussis DNA (PCR) NOT DETECTED Nasal Coronavir 229E PCR NOT DETECTED Nasal Coronavir HKU1 PCR NOT DETECTED Nasal Coronavir NL63 PCR NOT DETECTED Nasal Coronavir OC43 PCR NOT DETECTED Nasal Enterovir/Rhinovir PCR NOT DETECTED Nasal Influenza B PCR NOT DETECTED Nasal Influenza A PCR NOT DETECTED Nasal Parainfluen 1 PCR NOT DETECTED Nasal Parainfluen 2 PCR NOT DETECTED Nasal Parainfluen 3 PCR NOT DETECTED Nasal Parainfluen 4 PCR NOT DETECTED Nasal RSV (PCR) NOT DETECTED Nasal B.pertussis DNA PCR NOT DETECTED Nasal C.pneumoniae (PCR) NOT DETECTED Christopher Human Metapneumo PCR NOT DETECTED Nasal M.pneumoniae (PCR) NOT DETECTED Nasal SARS-CoV-2 (PCR) NOT DETECTED - Rads (name of study) CTA chest Radiology: Final report received, EMP read indepedently, See rad report (Saddle pulmonary embolism with Right heart strain.) PD MEDICAL DECISION MAKING - ED course Complexity details: reviewed results, re-evaluated patient, considered differential, d/w patient ED course: The patient had clear lungs and did not seem to be having an asthma exacerbation. Overall, her vital signs were fairly normal, other than slight tachypnea and the patient was well-appearing. Given her history of DVT/PE, as well as the lack of other findings on respiratory exam, I felt that she should be evaluated for potential PE. She was given a dose of Ativan while waiting for results, which did help a little. The patient's D-dimer was significantly elevated at over thousand. She was sent for CTA of the chest which showed a saddle pulmonary embolism with some degree of right heart strain. The patient was started on heparin bolus and drip. I spoke with Dr. Webb who was on hospitalist call at [facility], and he accepted the patient in transfer. I went to discuss the results with the patient, who continued to remain stable in the emergency department. She did note at that point in time, which she had not mentioned before, that both her mother and brother from pulmonary emboli. The patient's blood pressure did trend down after the Ativan, so she was given fluids. She requested analgesia for some substernal chest pain that developed not long before transfer, and this was given. The patient remained stable throughout the rest of her stay in the emergency department. - Critical Care Time(min): 45 Comments: Critical care time was necessary, due to high probability of imminent decline and , secondary to saddle pulmonary embolism with right heart strain. Time Includes: Direct patient care, Review records, Reassess patient, Document care, Coordinate care, Medical consult, See progress note Data interpretation: Labs, Pulse ox, CXR (CTA chest), Cardiac output, See progress note Departure - Departure Disposition: 02 Transfer Acute Care Hosp Clinical Impression: Saddle pulmonary embolus Qualifiers: Chronicity: acute Acute cor pulmonale presence: unspecified Qualified Code(s): I26.92 - Saddle embolus of pulmonary artery without acute cor pulmonale Condition: Serious Discharge Date/Time: 08/15/21 18:00
--- NOTE | 2021-08-15 10:13 | XRAY Report ---
PROCEDURE: Chest 1 View X-Ray INDICATIONS: dyspnea TECHNIQUE: One view of the chest was acquired. COMPARISON: 06/17/2019. FINDINGS: Surgical changes and devices: None. Lungs and pleura: No pleural effusions or pneumothorax. Lungs are clear. Mediastinum: Mediastinal contours appear normal. Heart size is normal. Bones and chest wall: No suspicious bony lesions. Overlying soft tissues appear unremarkable. IMPRESSION: No acute cardiopulmonary pathology. Reviewed by: Marshall Jack MD on 08/15/2021 10:11 AM PDT Approved by: Marshall Jack MD on 08/15/2021 10:11 AM PDT Station ID: [id number]
[2021-08-15 10:19] LABS: INR 1.1 (0.8-1.2); PT - PROTHROMBIN TIME 11.8 secs (9.9-12.6)
[2021-08-15 10:20] LABS: CALCIUM 8.8 mg/dL (8.5-10.3); POTASSIUM 3.8 mmol/L (3.5-5.0)
[2021-08-15 10:26] LABS: D-DIMER 1006.2 ng/mL (200.0-255.0)
[2021-08-15] MEDS ORDERED: IOVERSOL 320 100 ML VIAL IVP ONE ×2 (11:02→12:05)
--- NOTE | 2021-08-15 11:52 | CT Report ---
PROCEDURE: ANGIO CHEST W/WO INDICATIONS: dyspnea, elev d-dimer, h/o PE CONTRAST: IV CONTRAST: Optiray 320 ml: 80 PO CONTRAST: *NO PO CONTRAST TECHNIQUE: After the administration of intravenous contrast, 2 mm axial images were acquired from the pulmonary apices to the posterior costophrenic angles during the arterial phase. In addition, 1 mm lung kernel and 5 mm soft tissue kernel reconstructions were performed. 3-dimensional coronal oblique maximum int ensity projection (MIP) reformats, 8 mm axial MIP, and 5 mm coronal and sagittal MPR reformats were t hen performed through the thorax. For radiation dose reduction, the following was used: automated exp osure control, adjustment of mA and/or kV according to patient size. COMPARISON: 06/17/2019 FINDINGS: Partially occlusive saddle pulmonary embolism in the main pulmonary trunk, extending into the bilater al left and right main pulmonary arteries, with further extension into the right upper and left upper /lower and multiple segmental/subsegmental branches thereof. Focal occlusion of the left upper lobe p ulmonary artery with near full occlusion of the left lower lobe pulmonary artery. The main pulmonary trunk measures 3.4 cm in diameter, greater in diameter than thoracic aorta. Lungs and pleura: Lungs and pleural spaces are clear. Mediastinum: Heart size is normal. No pericardial effusion. There is flattening and mild bowing of th e interventricular septum to the left, along with reflux of contrast material into the hepatic veins, findings which are suggestive of right heart strain. No threshold enlarged mediastinal or hilar lymp h node. Bones and chest wall: No suspicious bony lesions. Ribs and thoracic spine appear intact throughout. No axillary or supraclavicular adenopathy. Abdomen: Visualized upper abdominal solid organs appear normal in the early arterial phase of enhanc ement. IMPRESSION: Acute saddle pulmonary embolism with extension into the right upper lobe, left upper lobe, and left l ower lobe pulmonary arteries, fully occlusive in the left upper lobe is mostly occlusive in the left lower lobe. Findings of right heart strain are present. The results were discussed at time of dictati on with Dr. Norton. Reviewed by: Hilario Gerber MD on 08/15/2021 11:51 AM PDT Approved by: Hilario Gerber MD on 08/15/2021 11:51 AM PDT Station ID: [id number]
[2021-08-15 12:28] LABS: BASOPHILS % (AUTO) 0.5 %; EOSINOPHILS # (AUTO) 0.2 10^3/uL (0.0-0.7); EOSINOPHILS % (AUTO) 3.2 %; HCT - HEMATOCRIT 36.5 % (37.0-47.0); HGB - HEMOGLOBIN 12.1 g/dL (12.0-16.0); LYMPHOCYTES # (AUTO) 1.5 10^3/uL (1.5-3.5); LYMPHOCYTES % (AUTO) 20.6 %; MEAN CORPUSCULAR HEMOGLOBIN 28.7 pg (27.0-31.0); MEAN CORPUSCULAR HGB CONC 33.2 g/dL (32.0-36.0); MEAN CORPUSCULAR VOLUME 86.5 fL (81.0-99.0); MEAN PLATELET VOLUME 10.2 fL (7.9-10.8); MONOCYTES # (AUTO) 0.4 10^3/uL (0.0-1.0); MONOCYTES % (AUTO) 5.5 %; NEUTROPHILS # (AUTO) 5.2 10^3/uL (1.5-6.6); NEUTROPHILS % (AUTO) 70.1 %; PLT - PLATELET COUNT 133 10^3/uL (130-450); RED BLOOD COUNT 4.22 10^6/uL (4.20-5.40); RED CELL DISTRIBUTION WIDTH 12.3 % (12.0-15.0); WHITE BLOOD COUNT 7.4 x10^3/uL (4.8-10.8)
[2021-08-15 12:38] LABS: ALBUMIN 3.5 g/dL (3.2-5.5); ALBUMIN/GLOBULIN RATIO 1.2 (1.0-2.2); BILIRUBIN,TOTAL 0.4 mg/dL (0.2-1.0); CALCIUM 9.2 mg/dL (8.5-10.3); TOTAL PROTEIN 6.5 g/dL (6.7-8.2)
[2021-08-15] MEDS ORDERED: HEPARIN 25000UNITS/500ML (D5W) 25,000 UNIT/500 ML BAG IV SCH ×2 (13:00)
[2021-08-15 14:11] LABS: B. PARAPERTUSSIS- RESP PCR PAN NOT DETECTED; B. PERTUSSIS- RESP PCR PANEL NOT DETECTED; C. PNEUMONIAE- RESP PCR PANEL NOT DETECTED; CORONAVIRUS 229E-RESP PCR NOT DETECTED; CORONAVIRUS HKU1-RESP PCR NOT DETECTED; CORONAVIRUS NL63-RESP PCR NOT DETECTED; CORONAVIRUS OC43-RESP PCR NOT DETECTED; HUMAN METAPNEUMOVIRUS NOT DETECTED; INFLUENZA A- RESP PCR PANEL NOT DETECTED; INFLUENZA B - RESP PCR PANEL NOT DETECTED; M. PNEUMONIAE- RESP PCR PANEL NOT DETECTED; PARAINFLUENZA VIRUS 1 NOT DETECTED; PARAINFLUENZA VIRUS 2 NOT DETECTED; PARAINFLUENZA VIRUS 3 NOT DETECTED; PARAINFLUENZA VIRUS 4 NOT DETECTED; RHINOVIRUS/ENTEROVIRUS NOT DETECTED; RSV- RESP PCR PANEL NOT DETECTED; SARS-CoV-2 -RESP PCR PANEL NOT DETECTED
[2021-08-15 17:02] VITALS: BP 129/95
[2021-08-15] MEDS ORDERED: SODIUM CHLORIDE 0.9% 1,000 ML IV STA (17:02)
[2021-08-15] MEDS ORDERED: HYDROmorphone 0.5 MG/0.5 ML SYRINGE IVP STA (17:02)
== END 2021-08-15 18:00 | disposition short-term general hospital (02) ==
LOC: EDUNIT# → ED 09:43
DX: I26.92 Saddle embolus of pulmonary artery without acute cor pulmonale (principal); I10 Essential (primary) hypertension
CPT/HCPCS: 0202U; 36415; 71045; 71275; 80048; 80053; 83690; 85025; 85379; 85610; 96374; 96375; 99285; 99291; J1170; J2060; Q9967

== ENCOUNTER 2021-08-15 17:49 | Outpatient (CLI) | payer MEDICAID | END 2021-08-15 17:50 | disposition short-term general hospital (02) | LOC: EMS 17:49 | PROVIDERS: ATTEND Emergency Medicine | DX: I26.92 Saddle embolus of pulmonary artery without acute cor pulmonale (principal) | CPT/HCPCS: A0425; A0426 ==

== ENCOUNTER 2021-09-25 16:03 | Emergency (ER) | payer MEDICAID ==
[2021-09-25 16:26] LABS: BASOPHILS % (AUTO) 0.8 %; EOSINOPHILS # (AUTO) 0.3 10^3/uL (0.0-0.7); EOSINOPHILS % (AUTO) 5.1 %; HCT - HEMATOCRIT 37.4 % (37.0-47.0); HGB - HEMOGLOBIN 12.4 g/dL (12.0-16.0); LYMPHOCYTES # (AUTO) 1.5 10^3/uL (1.5-3.5); LYMPHOCYTES % (AUTO) 30.5 %; MEAN CORPUSCULAR HGB CONC 33.2 g/dL (32.0-36.0); MEAN CORPUSCULAR VOLUME 84.4 fL (81.0-99.0); MEAN PLATELET VOLUME 9.3 fL (7.9-10.8); MONOCYTES # (AUTO) 0.3 10^3/uL (0.0-1.0); MONOCYTES % (AUTO) 6.4 %; NEUTROPHILS # (AUTO) 2.8 10^3/uL (1.5-6.6); PLT - PLATELET COUNT 194 10^3/uL (130-450); RED BLOOD COUNT 4.43 10^6/uL (4.20-5.40); RED CELL DISTRIBUTION WIDTH 12.2 % (12.0-15.0); WHITE BLOOD COUNT 4.9 x10^3/uL (4.8-10.8)
--- NOTE | 2021-09-25 16:42 | XRAY Report ---
PROCEDURE: Chest 1 View X-Ray INDICATIONS: Chest pain TECHNIQUE: One view of the chest was acquired. COMPARISON: Chest x-ray 08/15/2021 FINDINGS: Surgical changes and devices: None. Lungs and pleura: No pleural effusions or pneumothorax. Lungs are clear. Mediastinum: Mediastinal contours appear normal. Heart size is normal. Bones and chest wall: No suspicious bony lesions. Overlying soft tissues appear unremarkable. IMPRESSION: No acute pulmonary process. Reviewed by: Marifer Hernandez MD on 09/25/2021 4:41 PM PDT Approved by: Marifer Hernandez MD on 09/25/2021 4:41 PM PDT Station ID: [id number]
[2021-09-25 16:44] LABS: ALBUMIN 3.8 g/dL (3.2-5.5); ALBUMIN/GLOBULIN RATIO 1.1 (1.0-2.2); BILIRUBIN,TOTAL 0.6 mg/dL (0.2-1.0); CALCIUM 9.3 mg/dL (8.5-10.3); CREATININE 1.1 mg/dL (0.4-1.0); POTASSIUM 3.9 mmol/L (3.5-5.0); TOTAL PROTEIN 7.4 g/dL (6.7-8.2)
[2021-09-25] MEDS ORDERED: HYDROmorphone 1 MG/ML CARPUJECT IVP STA (16:51)
--- NOTE | 2021-09-25 16:53 | ED Physician Documentation ---
PD HPI CHEST PAIN - Stated complaint Stated Complaint: CHEST PX,TROUBLE BREATHING - Chief complaint Chief Complaint: Cardiac - History obtained from History obtained from: Patient - Additional information Additional information: 50-year-old woman with history of DVT and PEs 5 years ago anticoagulated for 1 year. Also an extensive family history of thrombosis embolic disease. She was seen by my partner August 15 and diagnosed with a saddle PE. Sent to a tertiary center where she was treated conservatively. Today after eating lunch at around 2 PM developed left-sided severe chest pain and increased work of breathing. She has been compliant with her DOAC. Review of Systems Ten Systems: 10 systems reviewed and negative Constitutional: reports: Reviewed and negative Nose: reports: Reviewed and negative Cardiac: reports: Chest pain / pressure. denies: Palpitations, Pedal edema, Calf pain PD PAST MEDICAL HISTORY - Past Medical History Past Medical History: Yes Cardiovascular: Hypertension, Pulmonary embolism Respiratory: Asthma, Shortness of breath Endocrine/Autoimmune: None GI: GERD MEDICAL SERVICE REPRESENTATIVE: None : None HEENT: None Psych: Depression, Anxiety, Bipolar disorder, Panic attacks, Post traumatic stress disorder Musculoskeletal: Osteoarthritis Derm: None - Past Surgical History Past Surgical History: Yes Ortho: Carpal Tunnel surgery /MEDICAL SERVICE REPRESENTATIVE: Tubal ligation - Present Medications Home Medications: Ambulatory Orders Medication Instructions Recorded Confirmed Gabapentin [Neurontin] 800 mg PO TID 09/11/13 08/15/21 Meloxicam [Mobic] 15 mg PO DAILY 09/11/13 08/15/21 Pantoprazole Sodium [Protonix] 40 mg PO BID #60 tablet. 09/11/13 08/15/21 hydrOXYzine PAMOATE [Vistaril] 100 mg PO BID 09/11/13 08/15/21 clonazePAM [Klonopin] 1 mg PO BID 11/12/13 08/15/21 Aspirin [Aspirin EC] 81 mg PO DAILY 04/04/18 08/15/21 Lurasidone HCl [Latuda] 60 mg PO DAILY 04/04/18 08/15/21 Tramadol HCl 100 mg PO TID 04/04/18 08/15/21 Valacyclovir HCl [Valacyclovir] 1,000 mg PO DAILY PRN 04/04/18 08/15/21 traMADol [Ultram] 50 mg PO ONCE #10 tablet 06/17/19 08/15/21 Phenazopyridine HCl [Pyridium] 100 mg PO TID PRN #15 tablet 05/05/21 08/15/21 HYDROcod/ACETAM 5/325 [Elim 5/325] 1 - 2 tab PO Q6H PRN #15 tablet 09/25/21 - Allergies Allergies/Adverse Reactions: Allergies Allergy/AdvReac Type Severity Reaction Status Date / Time carbamazepine [From Tegretol] Allergy Rash Verified 09/25/21 16:11 erythromycin base Allergy Emesis Verified 09/25/21 16:11 [Erythromycin Base] ketorolac [From Toradol] Allergy Rash Verified 09/25/21 16:11 latex Allergy Rash Verified 09/25/21 16:11 Tetracyclines Allergy Rash Verified 09/25/21 16:11 - Social History Does the pt smoke?: No Smoking Status: Never smoker Does the pt drink ETOH?: No Does the pt have substance abuse?: No - Family History Family history: reports: Non contributory - Immunizations Immunizations are current?: Yes - POLST Patient has POLST: No PD ED PE NORMAL - Vitals Vital signs reviewed: Yes - General General: Alert and oriented X 3, No acute distress - HEENT HEENT: PERRL, EOMI - Neck Neck: Supple, no meningeal sign, No bony TTP - Cardiac Cardiac: RRR, No murmur - Respiratory Respiratory: No respiratory distress, Clear bilaterally, Other ([place] with deep breathing) - Abdomen Abdomen: Non tender - Back Back: No CVA TTP, No spinal TTP - Derm Derm: Normal color, Warm and dry - Extremities Extremities: No edema, No calf tenderness / cord - Neuro Neuro: Alert and oriented X 3, Normal speech Results - Vitals Vitals: Vital Signs - 24 hr 09/25/21 09/25/21 09/25/21 16:07 16:41 17:30 Temperature 36.8 C Heart Rate 92 73 67 Respiratory 20 20 15 Rate Blood Pressure 124/81 H 92/75 O2 Saturation 97 97 100 09/25/21 17:53 Temperature Heart Rate 69 Respiratory 14 Rate Blood Pressure 108/68 O2 Saturation 96 Oxygen O2 Source Room air - EKG (time done) 1619 Rate: Rate (enter#) (78) Rhythm: NSR [place]: Normal Intervals: Normal MS QRS: Normal Ischemia: Non specific changes - Labs Labs: Laboratory Tests 09/25/21 09/25/21 09/25/21 16:21 16:21 16:21 WBC 4.9 RBC 4.43 Hgb 12.4 Hct 37.4 MCV 84.4 MCH 28.0 MCHC 33.2 RDW 12.2 Plt Count 194 MPV 9.3 Neut # (Auto) 2.8 Lymph # (Auto) 1.5 [place] # (Auto) 0.3 Eos # (Auto) 0.3 Baso # (Auto) 0.0 Absolute Nucleated RBC 0.00 Nucleated RBC % 0.0 Sodium 139 Potassium 3.9 Chloride 107 Carbon Dioxide 24 Anion Gap 8.0 BUN 18 Creatinine 1.1 H Estimated GFR (MDRD) 53 L Glucose 87 Calcium 9.3 Total Bilirubin 0.6 AST 17 ALT 14 Alkaline Phosphatase 53 Troponin I High Sens < 2.3 L Total Protein 7.4 Albumin 3.8 Globulin 3.6 Albumin/Globulin Ratio 1.1 Lipase 46 PD MEDICAL DECISION MAKING - ED course ED course: 50-year-old woman presents with pleuritic chest pain today, recent saddle PE. CT of the chest showing improved mostly chronic clot burden. No other acute findings. Departure - Departure Disposition: 01 Home, Self Care Clinical Impression: Chest pain Qualifiers: Chest pain type: unspecified Qualified Code(s): R07.9 - Chest pain, unspecified Condition: Good Record reviewed to determine appropriate education?: Yes Instructions: ED Chest Pain Pleurisy Prescriptions: HYDROcod/ACETAM 5/325 [Elim 5/325] 1 - 2 tab PO Q6H PRN #15 tablet PRN Reason: Pain Comments: As discussed, overall your clot burden looks less than it did when we sent to [facility] a few weeks ago. Still a fair amount of clot there. Follow-up with your pinsetter mechanic helper tomorrow as scheduled. Return for new or worsening symptoms. Continue current medications otherwise. I sent your prescription electronically to [facility] in [place]. I am prescribing a short course of narcotic pain medication for you. These are potentially dangerous and addictive medications that should be used carefully. These medications may constipate you. Take an itrw-hfg-soyjses stool softener (docusate) twice daily with plenty of water while taking these medications. If you go 24 hours without a bowel movement, take srxj-jpd-vyrebmi miralax, per package instructions. Do not drink or drive while taking these medications. If you received narcotic or sedating medications while in the emergency department, do not drive for 24 hours. Store this medication in a safe, secure place and out of reach of children. It is a violation of federal law to give or sell this medication to another person or to use in a manner other than prescribed. The ED will not refill narcotic prescriptions, including prescriptions lost or stolen. To dispose of unwanted medications: 1. [facility] at [address] in [place] has a medication drop box. They accept prescription medications (in pill form) Saturday through Saturday 9:00 a.m. to 5:00 p.m. 2. The [facility] accepts prescription medications (in pill form only) for disposal year round. Call for more information. 3. Contact the [facility] for the next [facility] sponsored prescription drug collection event. , [phone], or [phone]; Note that many narcotic pain relievers also contain Tylenol/acetaminophen. Please ensure that your total dose of acetaminophen from all sources does not exceed 3 g (3000 mg) per day. Discharge Date/Time: 09/25/21 18:06
[2021-09-25] MEDS ORDERED: IOPAMIDOL-300 100 ML VIAL ONE (17:05)
--- NOTE | 2021-09-25 17:34 | CT Report ---
PROCEDURE: ANGIO CHEST W/WO INDICATIONS: Increased CP, recent saddle PE CONTRAST: IV CONTRAST: Isovue 300 ml: 80 PO CONTRAST: *NO PO CONTRAST TECHNIQUE: After the administration of intravenous contrast, 2 mm axial images were acquired from the pulmonary apices to the posterior costophrenic angles during the arterial phase. In addition, 1 mm lung kernel and 5 mm soft tissue kernel reconstructions were performed. 3-dimensional coronal oblique maximum int ensity projection (MIP) reformats, 8 mm axial MIP, and 5 mm coronal and sagittal MPR reformats were t hen performed through the thorax. For radiation dose reduction, the following was used: automated exp osure control, adjustment of mA and/or kV according to patient size. COMPARISON: 08/15/2021 FINDINGS: Image quality: Excellent. Pulmonary arteries: Lesser extent of pulmonary embolism when compared to prior study. There is still thrombus within the main pulmonary trunk and in the main left and right pulmonary arteries extending into multiple lobar and segmental/subsegmental branches. Lungs and pleura: No acute airspace opacity. No significant pleural abnormality. Mediastinum: Heart size is normal, without pericardial effusion. No mediastinal or hilar adenopathy . Thoracic aorta is normal in caliber and enhancement. Esophagus is normal in caliber, without hiat al hernia. Bones and chest wall: No suspicious bony lesions. Ribs and thoracic spine appear intact throughout. No axillary or supraclavicular adenopathy. The thyroid is normal in size and there are no incident al findings. Abdomen: Visualized upper abdominal solid organs appear normal in the early arterial phase of enhanc ement. IMPRESSION: Saddle pulmonary embolism extending into multiple lobar and segmental branches bilaterally. The burde n of pulmonary embolism is decreased when compared with the prior study. Most of the thrombus appears chronic however it would be difficult to strictly exclude any acute thrombus. Reviewed by: Hliario Gerber MD on 09/25/2021 5:33 PM PDT Approved by: Hilario Gerber MD on 09/25/2021 5:33 PM PDT Station ID: [id number]
[2021-09-25 17:54] VITALS: BP 108/68
[2021-09-25] MEDS ORDERED: IOPAMIDOL-300 100 ML VIAL IVP ONE (21:47)
== END 2021-09-25 18:06 | disposition home or self-care (01) ==
LOC: ED 16:03
DX: R07.9 Chest pain, unspecified (principal)
CPT/HCPCS: 36415; 71045; 71275; 80053; 83690; 84484; 85025; 93005; 96374; 99283; 99284; J1170; Q9967

== ENCOUNTER 2021-11-13 20:00 | Outpatient (CLI) | payer MEDICAID | END 2021-11-13 20:01 | disposition EMS.NT | LOC: EMS 20:00 | DX: R05.9 Cough, unspecified (principal); R06.02 Shortness of breath ==

== ENCOUNTER 2022-02-27 10:32 | Emergency (ER) | payer MEDICAID ==
--- NOTE | 2022-02-27 12:31 | XRAY Report ---
PROCEDURE: Chest 1 View X-Ray INDICATIONS: cough TECHNIQUE: One view of the chest was acquired. COMPARISON: CT angiogram chest 09/25/2021 FINDINGS: Surgical changes and devices: None. Lungs and pleura: No pleural effusions or pneumothorax. Lungs are clear. Mediastinum: Mediastinal contours appear normal. Heart size is normal. Bones and chest wall: No suspicious bony lesions. Overlying soft tissues appear unremarkable. IMPRESSION: No acute cardiopulmonary process demonstrated radiographically. Reviewed by: Hilario Gerber MD on 02/27/2022 12:30 PM PDT Approved by: Hilario Gerber MD on 02/27/2022 12:30 PM PDT Station ID: [id number]
[2022-02-27 15:24] VITALS: BP 108/66
[2022-02-27] MEDS ORDERED: MOLNUPIRAVIR PREPACK PO STA (15:30)
--- NOTE | 2022-02-27 15:31 | ED Physician Documentation ---
PD HPI URI - Stated complaint Stated Complaint: C+/SOA/COUGH - Chief complaint Chief Complaint: Resp - History obtained from History obtained from: Patient - History of Present Illness Timing - onset: Yesterday Timing duration: Days (1) Timing details: Gradual onset Pain level max: 0 Pain level now: 0 Associated symptoms: Fever, Nasal congestion, Rhinorrhea, Dry cough - Additional information Additional information: 51-year-old female presents to the emergency department with rhinorrhea, cough and congestion since yesterday. Took a positive COVID test last night. Here seeking antiviral therapy. She is on several medications at home including Latuda and simvastatin. Review of Systems Constitutional: reports: Fever Nose: reports: Rhinorrhea / runny nose, Congestion Respiratory: reports: Cough Skin: denies: Rash Musculoskeletal: denies: Neck pain, Back pain Neurologic: denies: Headache PD PAST MEDICAL HISTORY - Past Medical History Past Medical History: Yes Cardiovascular: Hypertension, Pulmonary embolism Respiratory: Asthma, Shortness of breath Endocrine/Autoimmune: None GI: GERD SEMICONDUCTOR PROCESSING GROUP LEADER: None : None HEENT: None Psych: Depression, Anxiety, Bipolar disorder, Panic attacks, Post traumatic st ress disorder Musculoskeletal: Osteoarthritis Derm: None - Past Surgical History Past Surgical History: Yes Ortho: Carpal Tunnel surgery /SEMICONDUCTOR PROCESSING GROUP LEADER: Tubal ligation - Present Medications Home Medications: Ambulatory Orders Medication Instructions Recorded Confirmed Gabapentin [Neurontin] 800 mg PO TID 09/11/13 02/27/22 Meloxicam [Mobic] 15 mg PO DAILY 09/11/13 02/27/22 Pantoprazole Sodium [Protonix] 40 mg PO BID #60 tablet. 09/11/13 02/27/22 hydrOXYzine PAMOATE [Vistaril] 100 mg PO BID 09/11/13 02/27/22 clonazePAM [Klonopin] 1 mg PO BID 11/12/13 02/27/22 Lurasidone HCl [Latuda] 60 mg PO DAILY 04/04/18 02/27/22 Tramadol HCl 100 mg PO TID 04/04/18 02/27/22 Valacyclovir HCl [Valacyclovir] 1,000 mg PO DAILY PRN 04/04/18 02/27/22 traMADol [Ultram] 50 mg PO BID 02/27/22 02/27/22 - Allergies Allergies/Adverse Reactions: Allergies Allergy/AdvReac Type Severity Reaction Status Date / Time carbamazepine [From Tegretol] Allergy Rash Verified 02/27/22 10:45 erythromycin base Allergy Emesis Verified 02/27/22 10:45 [Erythromycin Base] ketorolac [From Toradol] Allergy Rash Verified 02/27/22 10:45 latex Allergy Rash Verified 02/27/22 10:45 Tetracyclines Allergy Rash Verified 02/27/22 10:45 - Social History Does the pt smoke?: No Smoking Status: Never smoker Does the pt drink ETOH?: No Does the pt have substance abuse?: No - Immunizations Immunizations are current?: Yes - POLST Patient has POLST: No PD ED PE NORMAL - Vitals Vital signs reviewed: Yes - General General: Alert and oriented X 3, No acute distress - HEENT HEENT: PERRL, Moist mucous membranes - Neck Neck: Supple, no meningeal sign - Cardiac Cardiac: RRR, Strong equal pulses - Respiratory Respiratory: No respiratory distress, Clear bilaterally - Abdomen Abdomen: Soft, Non tender, Non distended - Derm Derm: Warm and dry - Neuro Neuro: Alert and oriented X 3 - Psych Psych: Normal mood, Normal affect Results - Vitals Vitals: Vital Signs - 24 hr 02/27/22 02/27/22 10:39 15:23 Temperature 36.6 C 37.3 C Heart Rate 99 88 Respiratory 20 18 Rate Blood Pressure 107/65 108/66 O2 Saturation 99 99 Oxygen O2 Source Room air - Rads (name of study) cxr Radiology: Final report received, EMP read contemporaneously, See rad report (No acute abnormality) PD MEDICAL DECISION MAKING - ED course Complexity details: reviewed results, re-evaluated patient, considered differential, d/w patient ED course: Patient is a 51-year-old female who presents to the emergency department after testing positive for COVID last night. She is interested in antiviral therapy. Several of her medications interact with Paxlovid, therefore we will prescribe molnupiravir. Patient is well-appearing, nontoxic. No hypoxia. No acute findings on chest x-ray. She has had her COVID vaccination but no booster. Patient counseled regarding signs and symptoms for which I believe and urgent re-evaluation would be necessary. Patient with good understanding of and agreement to plan and is comfortable going home at this time This document was made in part using voice recognition software. While efforts are made to proofread this document, sound alike and grammatical errors may occur. Departure - Departure Disposition: 01 Home, Self Care Clinical Impression: COVID Condition: Good Instructions: ED URI Viral Follow-Up: your,doctor in 1 week [Other] Comments: The molnupiravir is 800 mg (4x200 mg capsules) by mouth every 12 hours for 5 d ays. You can use Motrin, Tylenol and other cough and cold medication as needed at home. Please return if you worsen. Your x-ray does not show any pneumonia today. Isolation precautions for COVID Day 0 is your first day of symptoms or a positive viral test. Day 1 is the first full day after your symptoms developed or your test specimen was collected. If you have COVID-19 or have symptoms, isolate for at least 5 days. IF YOU: Tested positive for COVID-19 or have symptoms, regardless of vaccination status Stay home for at least 5 days Stay home for 5 days and isolate from others in your home. Wear a well-fitting mask if you must be around others in your home. Do not travel. Ending isolation if you had symptoms End isolation after 5 full days if you are fever-free for 24 hours (without the use of fever-reducing medication) and your symptoms are improving. Ending isolation if you did NOT have symptoms End isolation after at least 5 full days after your positive test. If you got very sick from COVID-19 or have a weakened immune system You should isolate for at least 10 days. Consult your doctor before ending isolation. Take precautions until day 10 Wear a well-fitting mask Wear a well-fitting mask for 10 full days any time you are around others inside your home or in public. Do not go to places where you are unable to wear a mask. Do not travel Do not travel until a full 10 days after your symptoms started or the date your positive test was taken if you had no symptoms. Avoid being around people who are more likely to get very sick from COVID-19. Discharge Date/Time: 02/27/22 15:45
== END 2022-02-27 15:45 | disposition home or self-care (01) ==
LOC: ED 10:32
DX: U07.1 COVID-19 (principal); I10 Essential (primary) hypertension
CPT/HCPCS: 71045; 99282; 99283; J3490

== ENCOUNTER 2022-03-24 07:11 | Outpatient (CLI) | payer MEDICAID ==
--- NOTE | 2022-03-26 17:07 | MRI Report ---
PROCEDURE: KNEE WO - LT INDICATIONS: TEAR OF LEFT MENISCUS TECHNIQUE: Noncontrast sagittal PD fast spin echo and T2 fast spin echo with fat saturation, sagittal 3-D gradie nt sequence with fat saturation; coronal T1 spin echo and PD fast spin echo with fat saturation, and axial PD fast spin echo with fat saturation through the knee. COMPARISON: None. FINDINGS: Image quality: Excellent. Menisci: There is peripheral displacement of medial meniscus bowing medial collateral ligament. No de finite focal medial meniscal tear is noted. Complex tear involving body and posterior horn of lateral meniscus is seen extending to both superior and inferior articulating surfaces. The meniscal root li gaments appear intact. Cruciate ligaments: There is thickened ACL with intrasubstance T2 hyperintense signal suggestive of l ow-grade intrasubstance partial thickness tear. No full-thickness ACL rupture. PCL is intact. Medial structures: Low-grade MCL sprain/partial thickness tear is seen. The posterior oblique ligamen t, semimembranosus tendon insertions, and oblique popliteal ligament, and meniscocapsular junction ap pear intact. Visualized portions of the pes anserinus tendons appear normal. No abnormal bursal flu id. Lateral structures: The lateral collateral ligament, long and short heads of the biceps femoris tend on appear intact. The popliteus tendon appears normal; the popliteofibular ligament appears intact. Iliotibial band appears normal. Anterior structures: The quadriceps and patellar tendons appear intact. Patellar alignment is heriberto l. No femoral trochlear dysplasia or ventral trochlear prominence. No edema in the infrapatellar fa t pad. Bones and cartilage: Moderate tricompartmental osteoarthritis and chondromalacia is seen most notably in lateral femoral tibial compartment. There is no fracture or dislocation. Joint space: There is small knee joint fluid. No Meyers's cyst. Normal appearing synovial plicae ar e incidentally noted. IMPRESSION: 1. Complex tear involving body and posterior horn of lateral meniscus extending to both superior and inferior articulating surfaces. No focal medial meniscal tear. 2. Suggestion of sprain/low-grade intrasubstance partial thickness tear involving anterior cruciate l igament. No full-thickness ACL rupture. PCL is intact. 3. Low-grade MCL sprain/partial thickness tear. 4. Moderate tricompartmental osteoarthritis and chondromalacia most notably in lateral femoral tibial compartment. No fracture or dislocation. Small joint effusion, no gross loose bodies. Reviewed by: Marshall Jack MD on 03/26/2022 5:06 PM PST Approved by: Marshall Jack MD on 03/26/2022 5:06 PM PST Station ID: [id number]
== END 2022-03-24 07:12 | disposition home or self-care (01) ==
LOC: DI 07:11
PROVIDERS: ATTEND Physical Medicine & Rehabilitation Pain Medicine
DX: S83.272A Complex tear of lateral meniscus, current injury, left knee, initial encounter (principal); S83.412A Sprain of medial collateral ligament of left knee, initial encounter; M17.12 Unilateral primary osteoarthritis, left knee; M94.262 Chondromalacia, left knee; M25.462 Effusion, left knee

== ENCOUNTER 2022-07-07 17:40 | Emergency (ER) | payer MEDICAID ==
[2022-07-07] MEDS ORDERED: GLUCAGON 1 MG/ML VIAL IVP STA ×2 (17:53→18:43)
--- NOTE | 2022-07-07 17:55 | ED Physician Documentation ---
History of Present Illness - Stated complaint Stated Complaint: OBJECT IN THROAT - Chief complaint Chief Complaint: Abd Pain - History obtained from History obtained from: Patient - Additonal information Additional information: She has a history of hiatal hernia and reflux. No history of EGD or esophageal food impaction. She was eating pork at home just prior to arrival and it got stuck in the midesophagus. She is able to talk fine, but is having trouble swallowing anything and cannot swallow even water. This is never happened before. PD PAST MEDICAL HISTORY - Past Medical History Cardiovascular: Hypertension, Pulmonary embolism Respiratory: Asthma, Shortness of breath Endocrine/Autoimmune: None GI: GERD TAXONOMIST: None : None HEENT: None Psych: Depression, Anxiety, Bipolar disorder, Panic attacks, Post traumatic stress disorder Musculoskeletal: Osteoarthritis Derm: None - Past Surgical History Past Surgical History: Yes Ortho: Carpal Tunnel surgery /TAXONOMIST: Tubal ligation - Present Medications Home Medications: Ambulatory Orders Medication Instructions Recorded Confirmed Gabapentin [Neurontin] 800 mg PO TID 09/11/13 02/27/22 Meloxicam [Mobic] 15 mg PO DAILY 09/11/13 02/27/22 Pantoprazole Sodium [Protonix] 40 mg PO BID #60 tablet. 09/11/13 02/27/22 hydrOXYzine PAMOATE [Vistaril] 100 mg PO BID 09/11/13 02/27/22 clonazePAM [Klonopin] 1 mg PO BID 11/12/13 02/27/22 Lurasidone HCl [Latuda] 60 mg PO DAILY 04/04/18 02/27/22 Tramadol HCl 100 mg PO TID 04/04/18 02/27/22 Valacyclovir HCl [Valacyclovir] 1,000 mg PO DAILY PRN 04/04/18 02/27/22 traMADol [Ultram] 50 mg PO BID 02/27/22 02/27/22 - Allergies Allergies/Adverse Reactions: Allergies Allergy/AdvReac Type Severity Reaction Status Date / Time carbamazepine [From Tegretol] Allergy Rash Verified 07/07/22 17:51 erythromycin base Allergy Emesis Verified 07/07/22 17:51 [Erythromycin Base] ketorolac [From Toradol] Allergy Rash Verified 07/07/22 17:51 latex Allergy Rash Verified 07/07/22 17:51 Tetracyclines Allergy Rash Verified 07/07/22 17:51 - Social History Does the pt smoke?: No Smoking Status: Never smoker Does the pt drink ETOH?: No Does the pt have substance abuse?: No - Immunizations Immunizations are current?: Yes - POLST Patient has POLST: No PD ED PE NORMAL - Vitals Vital signs reviewed: Yes - General General: Alert and oriented X 3, No acute distress, Other (She is unable to swallow her secretions and has a vomit bag at the bedside.) - Cardiac Cardiac: RRR, No murmur - Respiratory Respiratory: No respiratory distress, Clear bilaterally - Abdomen Abdomen: Non tender - Neuro Neuro: Alert and oriented X 3, Normal speech Results - Vitals Vitals: Vital Signs - 24 hr 07/07/22 17:48 Temperature 36.3 C L Heart Rate 88 Respiratory 26 H Rate Blood Pressure 115/45 L O2 Saturation 99 Oxygen O2 Source Room air PD Medical Decision Making - ED course ED course: 59-year-old woman with esophageal food impaction. Initially given glucagon and [employer] which resulted in no relief, subsequently nitroglycerin with no relief. Subsequently given a second dose of glucagon IV after which she vomited up the piece of pork and was able to tolerate liquids. Discussed need for follow-up for EGD. Departure - Departure Disposition: Home, Self Care Clinical Impression: Esophageal obstruction due to food impaction Condition: Good Record reviewed to determine appropriate education?: Yes Instructions: ED Foreign Body Esophageal Rslv Comments: Follow-up with your doctor on Saturday as scheduled. Discussed referral for upper endoscopy. Eat only very well chewed food especially meat until that is done. Return for new or worsening symptoms.
[2022-07-07] MEDS ORDERED: NITROGLYCERIN SL 0.4 MG TABLET SL STA (18:19)
[2022-07-07 19:18] VITALS: BP 107/74
== END 2022-07-07 19:19 | disposition home or self-care (01) ==
LOC: ED 17:40
DX: K22.2 Esophageal obstruction (principal); T18.128A Food in esophagus causing other injury, initial encounter
CPT/HCPCS: 96374; 96376; 99283; 99284; A9270

== ENCOUNTER 2022-07-25 09:32 | Emergency (ER) | payer MEDICAID ==
--- NOTE | 2022-07-25 10:02 | ED Physician Documentation ---
PD HPI HEENT - Stated complaint Stated Complaint: OBJECT IN CHEST - Chief complaint Chief Complaint: General - History obtained from History obtained from: Patient - History of Present Illness Timing - onset: How many hours ago (2) Timing - duration: Hours (2) Timing - details: Abrupt onset (onset while eating perez and eggs, felt a piece of perez get stuck in esophagus and then unable to swallow, vomiting saliva.) Location: Throat Worsens: Swalllowing Associated symptoms: No: Fever, Congestion Similar symptoms before: Diagnosis (has had food impaction once before that did clear after meds in er. Otherwise has achalasia with brief stuck foods at times with eating. 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 09/11/13 02/27/22 hydrOXYzine PAMOATE [Vistaril] 100 mg PO BID 09/11/13 02/27/22 clonazePAM [Klonopin] 1 mg PO BID 11/12/13 02/27/22 Lurasidone HCl [Latuda] 60 mg PO DAILY 04/04/18 02/27/22 Tramadol HCl 100 mg PO TID 04/04/18 02/27/22 Valacyclovir HCl [Valacyclovir] 1,000 mg PO DAILY PRN 04/04/18 02/27/22 traMADol [Ultram] 50 mg PO BID 02/27/22 02/27/22 - Allergies Allergies/Adverse Reactions: Allergies Allergy/AdvReac Type Severity Reaction Status Date / Time carbamazepine [From Tegretol] Allergy Rash Verified 07/25/22 09:41 erythromycin base Allergy Emesis Verified 07/25/22 09:41 [Erythromycin Base] ketorolac [From Toradol] Allergy Rash Verified 07/25/22 09:41 latex Allergy Rash Verified 07/25/22 09:41 Tetracyclines Allergy Rash Verified 07/25/22 09:41 - Social History Does the pt smoke?: No Smoking Status: Never smoker Does the pt drink ETOH?: No Does the pt have substance abuse?: No - Immunizations Immunizations are current?: Yes - POLST Patient has POLST: No PD ED PE NORMAL - Vitals Vital signs reviewed: Yes - General General: Alert and oriented X 3, Well developed/nourished, Other (appears uncomfortable with holding emesis bag and spitting up saliva frequently. ) - Neck Neck: Supple, no meningeal sign, No adenopathy - Cardiac Cardiac: RRR, No murmur - Respiratory Respiratory: Clear bilaterally - Abdomen Abdomen: Soft, Non tender - Derm Derm: Normal color, Warm and dry Results - Vitals Vitals: Vital Signs - 24 hr 07/25/22 07/25/22 07/25/22 09:39 10:59 11:57 Temperature 36.2 C L Heart Rate 99 85 75 Respiratory 20 16 16 Rate Blood Pressure 106/62 139/86 H 132/70 H O2 Saturation 100 97 97 07/25/22 12:50 Temperature Heart Rate 74 Respiratory 16 Rate Blood Pressure 121/67 O2 Saturation 99 Oxygen O2 Source Room air - Labs Labs: Laboratory Tests 07/25/22 07/25/22 10:15 10:15 WBC 4.8 RBC 4.88 Hgb 13.6 Hct 41.7 MCV 85.5 MCH 27.9 MCHC 32.6 RDW 12.3 Plt Count 167 MPV 9.1 Neut # (Auto) 2.3 Lymph # (Auto) 1.9 [place] # (Auto) 0.2 Eos # (Auto) 0.3 Baso # (Auto) 0.0 Absolute Nucleated RBC 0.00 Nucleated RBC % 0.0 Sodium 141 Potassium 3.6 Chloride 107 Carbon Dioxide 26 Anion Gap 8.0 BUN 17 Creatinine 1.1 H Estimated GFR (MDRD) 52 L Glucose 107 H Calcium 9.3 Magnesium 2.1 Total Bilirubin 0.5 AST 17 ALT 14 Alkaline Phosphatase 47 Total Protein 7.2 Albumin 4.0 Globulin 3.2 Albumin/Globulin Ratio 1.3 Lipase 31 Ethyl Alcohol < 5.0 PD Medical Decision Making - ED course Complexity details: reviewed results, considered differential (esophagel food impaction. ), d/w patient Drug Therapy Requiring Monitoring for Toxicity: given iv pain meds and glucagon to help with esophageal impaction. no change with first meds. repeated with glucagon and Zifran. Did not have improvement right off. I called and talked with dr. damon, who will see patient in about 4 hours after office. During that time, the patient suddenly felt relief of her pain and was able to swallow water without problems. Dr. damon notified back. the patient instructed to have liquids only first then soft foods. She still needs gi or surgery follow up for scoping to see why she has developed the obstructions 9strictures, mass, etc0. Departure - Departure Disposition: 01 Home, Self Care Clinical Impression: Esophageal obstruction due to food impaction Condition: Stable Record reviewed to determine appropriate education?: Yes Follow-Up: Zeeshan You MD [Primary Care Provider] - [facility] [Provider Group] Comments: Liquids only today and soft foods. No firm foods until follow-up. Small bites at a time. Follow-up with your primary with regard to the referral in process for gastroenterology. That may be the most appropriate in case you do need to have any intervention like dilatation of scar tissue etc. We are typically not have the tools needed in order to do those in our endoscopies. Other potential if it is going to be a while for the referral could be to see one of the general surgeons here for a more urgent scope just to see what it looks like. It may not necessarily need an procedure per se. However did need more of a procedure on the esophagus, then he would still need to see the tube sizer operator. Return if recurring problems. Continue with acid reducing medicines such as pantoprazole or omeprazole. Add antacid such as Maalox or Mylanta a few times daily if needed. Discharge Date/Time: 07/25/22 12:53
[2022-07-25 10:21] LABS: BASOPHILS % (AUTO) 0.8 %; EOSINOPHILS # (AUTO) 0.3 10^3/uL (0.0-0.7); EOSINOPHILS % (AUTO) 5.7 %; HCT - HEMATOCRIT 41.7 % (37.0-47.0); HGB - HEMOGLOBIN 13.6 g/dL (12.0-16.0); LYMPHOCYTES # (AUTO) 1.9 10^3/uL (1.5-3.5); LYMPHOCYTES % (AUTO) 40.7 %; MEAN CORPUSCULAR HEMOGLOBIN 27.9 pg (27.0-31.0); MEAN CORPUSCULAR HGB CONC 32.6 g/dL (32.0-36.0); MEAN CORPUSCULAR VOLUME 85.5 fL (81.0-99.0); MEAN PLATELET VOLUME 9.1 fL (7.9-10.8); MONOCYTES # (AUTO) 0.2 10^3/uL (0.0-1.0); MONOCYTES % (AUTO) 4.8 %; NEUTROPHILS # (AUTO) 2.3 10^3/uL (1.5-6.6); PLT - PLATELET COUNT 167 10^3/uL (130-450); RED BLOOD COUNT 4.88 10^6/uL (4.20-5.40); RED CELL DISTRIBUTION WIDTH 12.3 % (12.0-15.0); WHITE BLOOD COUNT 4.8 x10^3/uL (4.8-10.8)
[2022-07-25] MEDS: METOCLOPRAMIDE 10 MG/2 ML VIAL IVP STA ×2 (10:24→11:18)
[2022-07-25] MEDS: HYDROmorphone 1 MG/ML CARPUJECT IVP STA (10:24)
[2022-07-25] MEDS: SODIUM CHLORIDE 0.9% 1,000 ML IV STA (10:26)
[2022-07-25] MEDS: GLUCAGON 1 MG/ML VIAL IVP STA (10:26)
[2022-07-25 10:35] LABS: ALBUMIN/GLOBULIN RATIO 1.3 (1.0-2.2); ALKALINE PHOSPHATASE 47 IU/L (42-121); ALT ALANINE AMINOTRANSFERASE 14 IU/L (10-60); AST ASPARTATE AMINOTRANSFERASE 17 IU/L (10-42); BILIRUBIN,TOTAL 0.5 mg/dL (0.2-1.0); BUN - BLOOD UREA NITROGEN 17 mg/dL (6-20); CALCIUM 9.3 mg/dL (8.5-10.3); CARBON DIOXIDE - CO2 26 mmol/L (21-32); CHLORIDE 107 mmol/L (101-111); CREATININE 1.1 mg/dL (0.4-1.0); ETOH - ETHANOL < 5.0 mg/dL; GFR - MDRD 52 (>89); GLUCOSE 107 mg/dL (70-100); LIPASE 31 U/L (22-51); MAGNESIUM 2.1 mg/dL (1.7-2.8); POTASSIUM 3.6 mmol/L (3.5-5.0); SODIUM 141 mmol/L (135-145); TOTAL PROTEIN 7.2 g/dL (6.7-8.2)
[2022-07-25] MEDS: GLUCAGON 1 MG/ML VIAL IVP ONE (11:18)
[2022-07-25] MEDS: LACTATED RINGERS 1,000 ML IV STA (12:30)
[2022-07-25 12:53] VITALS: BP 121/67
== END 2022-07-25 12:53 | disposition home or self-care (01) ==
LOC: ED 09:32
DX: K22.2 Esophageal obstruction (principal)
CPT/HCPCS: 36415; 80053; 80320; 83690; 83735; 85025; 96361; 96374; 96375; 99284; J1170; J2765; J7120

== ENCOUNTER 2022-11-08 07:00 | Outpatient (CLI) | payer MEDICAID ==
--- NOTE | 2022-11-08 10:07 | Ultrasound Report ---
PROCEDURE: Abdomen Complete INDICATIONS: EPIGASTRIC PAIN TECHNIQUE: Real-time scanning was performed of the abdominal and retroperitoneal organs, with image documentatio n. COMPARISON: None. FINDINGS: Liver: Increased liver echogenicity, commonly mild hepatic steatosis. Gallbladder: Cholelithiasis without evidence of acute cholecystitis. Biliary ducts: Intrahepatic bile ducts are non-dilated. Extrahepatic bile duct caliber measures 4.6 mm. Normal is 6-7 mm or less in diameter, or 10 mm or less post-cholecystectomy. Pancreas: Visualized portions of the pancreas are sonographically normal. Spleen: Spleen is normal in size and homogeneous in echotexture. Kidneys: Kidneys are normal in size and echotexture. Right kidney measures 9.9 cm long; left kidney measures 9.2 cm long. No hydronephrosis or nephrolithiasis. No solid masses. No complex renal cyst ic lesions which require follow-up. Aorta: Visualized aorta is normal in caliber at less than 3 cm. Iliacs: Proximal common iliac arteries are normal in caliber at less than 2.5 cm. IVC: Intrahepatic inferior vena cava is patent. Miscellaneous: No free abdominal fluid. IMPRESSION: Cholelithiasis without evidence of acute cholecystitis. Echogenic liver, commonly caused by mild hepatic steatosis. Reviewed by: Pool Mann on 11/08/2022 10:06 AM PDT Approved by: Pool Mann on 11/08/2022 10:06 AM PDT Station ID: [id number]
== END 2022-11-08 07:01 | disposition home or self-care (01) ==
LOC: DI 07:00
PROVIDERS: ATTEND Internal Medicine
DX: K80.20 Calculus of gallbladder without cholecystitis without obstruction (principal)

== ENCOUNTER 2023-03-03 09:56 | Outpatient (CLI) | payer MEDICAID ==
[2023-03-03 10:20] LABS: BASOPHILS # (AUTO) 0.1 10^3/uL (0.0-0.1); EOSINOPHILS # (AUTO) 0.3 10^3/uL (0.0-0.7); EOSINOPHILS % (AUTO) 5.5 %; HCT - HEMATOCRIT 36.8 % (37.0-47.0); HGB - HEMOGLOBIN 11.6 g/dL (12.0-16.0); LYMPHOCYTES # (AUTO) 1.7 10^3/uL (1.5-3.5); MEAN CORPUSCULAR HEMOGLOBIN 25.3 pg (27.0-31.0); MEAN CORPUSCULAR HGB CONC 31.5 g/dL (32.0-36.0); MEAN CORPUSCULAR VOLUME 80.3 fL (81.0-99.0); MEAN PLATELET VOLUME 9.2 fL (7.9-10.8); MONOCYTES # (AUTO) 0.3 10^3/uL (0.0-1.0); MONOCYTES % (AUTO) 5.3 %; NEUTROPHILS # (AUTO) 2.6 10^3/uL (1.5-6.6); PLT - PLATELET COUNT 196 10^3/uL (130-450); RED BLOOD COUNT 4.58 10^6/uL (4.20-5.40); RED CELL DISTRIBUTION WIDTH 12.9 % (12.0-15.0); WHITE BLOOD COUNT 4.9 x10^3/uL (4.8-10.8)
[2023-03-03 10:40] LABS: ALBUMIN 3.8 g/dL (3.2-5.5); ALBUMIN/GLOBULIN RATIO 1.5 (1.0-2.2); BILIRUBIN,TOTAL 0.3 mg/dL (0.2-1.0); CALCIUM 9.1 mg/dL (8.5-10.3); TOTAL PROTEIN 6.3 g/dL (6.4-8.9)
[2023-03-03 10:50] LABS: THYROID STIMULATING HORMONE 2.37 uIU/mL (0.34-5.60)
[2023-03-05 17:08] LABS: ANTI-DNA (DS) AB QN <1 IU/mL (0-9); CENTROMERE B ANTIBODIES <0.2 AI (0.0-0.9); CHROMATIN ANTIBODIES <0.2 AI (0.0-0.9); JO-1 AB <0.2 AI (0.0-0.9); RIBOSOMAL P ANTIBODIES <0.2 AI (0.0-0.9); RNP ANTIBODIES <0.2 AI (0.0-0.9); SCLERODERMA-70 ANTIBODIES <0.2 AI (0.0-0.9); SJOGREN'S ANTI-SS-A <0.2 AI (0.0-0.9); SJOGREN'S ANTI-SS-B <0.2 AI (0.0-0.9); SMITH ANTIBODIES <0.2 AI (0.0-0.9); SMITH/RNP ANTIBODIES <0.2 AI (0.0-0.9)
== END 2023-03-03 09:57 | disposition home or self-care (01) ==
LOC: LAB 09:56
PROVIDERS: ATTEND Internal Medicine
DX: N93.9 Abnormal uterine and vaginal bleeding, unspecified (principal)
CPT/HCPCS: 36415; 80053; 84443; 85025; 86225; 86235

== ENCOUNTER 2023-03-03 09:58 | Outpatient (CLI) | payer MEDICAID ==
--- NOTE | 2023-03-03 16:32 | Ultrasound Report ---
PROCEDURE: Pelvic w/Transvaginal INDICATIONS: ABNORMAL UTERINE AND VAGINAL BLEEDING, UNSPECIFIED TECHNIQUE: Real-time scanning was performed of the pelvic organs, with image documentation. Additional endovagi nal scanning was necessary due to incomplete visualization of the adnexal and endometrial structures by transabdominal scanning. COMPARISON: None. FINDINGS: Uterus: Uterus is anteverted and normal in size at 7.4 x 4.6 x 4.6 cm. (Volume 81.2 mL) The myometr ium is heterogeneous. The endometrium measures 7 mm in combined thickness with trace endometrial flu id. Nabothian cysts and cystic changes in the cervix, largest of which measures 1.7 x 1.4 x 0.7 cm. Right posterior intramural hypoechoic mass measuring 1.7 x 1.9 x 1.8 cm with no significant internal vascularity. Ovaries: The right ovary measures 2.1 x 1.8 x 1.9 cm, with a calculated ovarian volume of 3.7 cc. T he left ovary measures 2.4 x 1.8 x 2.4 cm, with a calculated ovarian volume of 5.4 cc. The ovaries h ave a normal sonographic appearance. Less than 12 follicles can be seen in each ovary. Left adnexal anechoic cyst containing debris measuring 1.9 x 1.4 x 2.3. No septations or solid component. No cysti c lesions measuring greater than 3 cm. Other: No pathologic free abdominal or pelvic fluid. IMPRESSION: 1. Endometrial thickness measures 7 mm with trace fluid which is abnormal given history. Consider dir ect visualization and/or tissue sampling. 2. Heterogeneous myometrium with intramural fibroid. 3. Left adnexal cyst containing debris measuring 1.9 x 1.4 x 2.3 cm. No septations or solid component . Findings are indeterminate and may represent a hemorrhagic cyst or neoplasm. Per SRU guidelines, re commend follow-up ultrasound in 6-12 weeks to document resolution. Reviewed by: Isabelle Welch MD on 03/03/2023 4:30 PM PDT Approved by: Isabelle Welch MD on 03/03/2023 4:30 PM PDT Station ID: [id number]
--- NOTE | 2023-03-03 16:58 | Ultrasound Report ---
PROCEDURE: Abdomen Complete INDICATIONS: History of gallstones TECHNIQUE: Real-time scanning was performed of the abdominal and retroperitoneal organs, with image documentatio n. Limited exam secondary to bowel gas. COMPARISON: Abdominal ultrasound on November 08, 2022. FINDINGS: Liver: Liver is normal in size and homogeneous in echotexture. Liver demonstrates diffuse increased echogenicity. No solid mass on the provided images. Main portal vein is patent with hepatopedal flow . Gallbladder: Filled with cholelithiasis and sludge with wall echo shadow sign. No wall thickening or pericholecystic fluid. Wall thickness measures 6 mm. No sonographic Donnlely's sign. Biliary ducts: Intrahepatic bile ducts are non-dilated. Extrahepatic bile duct caliber measures 7 m m. Normal is 6-7 mm or less in diameter, or 10 mm or less post-cholecystectomy. Pancreas: Visualized portions of the pancreas are sonographically normal. Pancreatic head not well s een secondary to bowel gas. Spleen: Spleen is normal in size and homogeneous in echotexture. Kidneys: Kidneys are normal in size and echotexture. Right kidney measures 10.5 cm long; left kidne y measures 10.1 cm long. No hydronephrosis or nephrolithiasis. No solid masses. No complex renal cy stic lesions which require follow-up. Aorta: Visualized aorta is normal in caliber at less than 3 cm. Iliacs: Not well seen secondary to bowel gas. IVC: Intrahepatic inferior vena cava is patent. Miscellaneous: No free abdominal fluid. IMPRESSION: Exam is limited secondary to bowel gas. 1. Cholelithiasis without acute cholecystitis. No intra or extrahepatic biliary ductal dilatation. CB D is at the upper limits of normal measuring 7 mm. 2. Liver is diffusely echogenic suggestive of parenchymal disease such as steatosis. Correlate with L FTs. Reviewed by: Isabelle Welch MD on 03/03/2023 4:57 PM PDT Approved by: Isabelle Welch MD on 03/03/2023 4:57 PM PDT Station ID: [id number]
== END 2023-03-03 09:59 | disposition home or self-care (01) ==
LOC: DI 09:58
PROVIDERS: ATTEND Internal Medicine
DX: N93.9 Abnormal uterine and vaginal bleeding, unspecified (principal); K80.20 Calculus of gallbladder without cholecystitis without obstruction; D25.1 Intramural leiomyoma of uterus; N83.202 Unspecified ovarian cyst, left side
CPT/HCPCS: 36415; 80053; 84443; 85025; 86225; 86235

== ENCOUNTER 2023-07-14 08:32 | Emergency (ER) | payer MEDICAID ==
--- NOTE | 2023-07-14 09:10 | ED Physician Documentation ---
PD HPI NVD - Stated complaint Stated Complaint: FOOD STUCK IN THROAT - Chief complaint Chief Complaint: Heent - History obtained from History obtained from: Patient - History of Present Illness Timing - onset: How many minutes ago (40), Today Timing - duration: Minutes (40) Timing - details: Abrupt onset (while eating steak felt abrupt onset of lower s ubsternal pressure and unable to swallow nor vomit. Has had this occur twice before in past couple of months. Treated in ER with IV meds and did not need scope. [facility] in [place] who would like to do EGD for eval and also routine colonoscopy.) Associated symptoms: No: Abdominal pain, Hematemesis Contributing factors: No: Sick contact, Bad food Similar symptoms before: No diagnosis (presumed esophageal irritation from Reflux. Has not had EGD, which has been suggested, due to scheduling and reluctance. 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 09/11/13 02/27/22 hydrOXYzine PAMOATE [Vistaril] 100 mg PO BID 09/11/13 02/27/22 clonazePAM [Klonopin] 1 mg PO BID 11/12/13 02/27/22 Lurasidone HCl [Latuda] 60 mg PO DAILY 04/04/18 02/27/22 Tramadol HCl 100 mg PO TID 04/04/18 02/27/22 Valacyclovir HCl [Valacyclovir] 1,000 mg PO DAILY PRN 04/04/18 02/27/22 traMADol [Ultram] 50 mg PO BID 02/27/22 02/27/22 Pantoprazole [Protonix] 40 mg PO DAILY 30 Days #30 tablet 07/14/23 Sucralfate [Carafate] 1 gm PO ACHS 7 Days #280 ml 07/14/23 - Allergies Allergies/Adverse Reactions: Allergies Allergy/AdvReac Type Severity Reaction Status Date / Time carbamazepine [From Tegretol] Allergy Rash Verified 07/14/23 08:43 erythromycin base Allergy Emesis Verified 07/14/23 08:43 [Erythromycin Base] ketorolac [From Toradol] Allergy Rash Verified 07/14/23 08:43 latex Allergy Rash Verified 07/14/23 08:43 Tetracyclines Allergy Rash Verified 07/14/23 08:43 - Social History Does the pt smoke?: No Smoking Status: Never smoker Does the pt drink ETOH?: No Does the pt have substance abuse?: No - Immunizations Immunizations are current?: Yes - POLST Patient has POLST: No PD ED PE NORMAL - Vitals Vital signs reviewed: Yes - General General: Alert and oriented X 3, Well developed/nourished, Other (appears uncomfortable and is holding emesis bag, with frequent spitting out of clear saliva. ) - HEENT HEENT: Pharynx benign - Neck Neck: Supple, no meningeal sign, No adenopathy - Cardiac Cardiac: RRR, No murmur - Respiratory Respiratory: Clear bilaterally - Abdomen Abdomen: Soft, Non tender - Derm Derm: Normal color, Warm and dry Results - Vitals Vitals: Vital Signs - 24 hr 07/14/23 07/14/23 07/14/23 08:41 10:43 11:42 Temperature 35.7 C L Heart Rate 96 86 82 Respiratory 20 16 16 Rate Blood Pressure 123/80 113/86 H 130/82 H O2 Saturation 97 100 100 Oxygen O2 Source Room air - Labs Labs: Laboratory Tests 07/14/23 07/14/23 09:30 09:30 WBC 4.6 L RBC 5.01 Hgb 12.8 Hct 40.4 MCV 80.6 L MCH 25.5 L MCHC 31.7 L RDW 13.2 Plt Count 188 MPV 9.4 Neut # (Auto) 2.5 Lymph # (Auto) 1.5 [place] # (Auto) 0.2 Eos # (Auto) 0.4 Baso # (Auto) 0.0 Absolute Nucleated RBC 0.00 Nucleated RBC % 0.0 Sodium 137 Potassium 3.6 Chloride 103 Carbon Dioxide 26 Anion Gap 8.0 BUN 14 Creatinine 1.1 Estimated GFR (MDRD) 52 L Glucose 100 Calcium 9.5 Magnesium 1.7 Total Bilirubin 0.4 AST 13 ALT 10 Alkaline Phosphatase 50 Total Protein 6.9 Albumin 4.1 Globulin 2.8 Albumin/Globulin Ratio 1.5 Lipase 12 Ethyl Alcohol < 10.0 PD Medical Decision Making - ED course Complexity details: re-evaluated patient (the patient had IV started and given Glucagon and DIlaudid for pain and esophageal spasm. She did have improvement in the chest discomfort, and was able to swallow small sips of water. Repeat dose of med and she states it felt like it went down, and now able to take better si ps of fluids. ), considered differential (onset and symptoms cw food impaction of steak. She has had similar in the past. Not had EGD for eval, but does have GI in [place].), d/w patient Departure - Departure Disposition: Home, Self Care Clinical Impression: Food impaction of esophagus, Esophagitis Condition: Stable Record reviewed to determine appropriate education?: Yes Instructions: ED Foreign Body Esophageal Rslv Follow-Up: Zeeshan You MD [Primary Care Provider] - PILY LLOYD MD [Physician No Access] - Prescriptions: Sucralfate [Carafate] 1 gm PO ACHS 7 Days #280 ml Pantoprazole [Protonix] 40 mg PO DAILY 30 Days #30 tablet Comments: Soft food and plenty of fluids for the next day or 2. Progress diet as tolerated but avoid spicy or acidic foods. I would resume your pantoprazole daily. Add sacral fate 4 times daily for the next several days and then after that particularly at night before bed but even a couple of times a day. Follow-up with Dr. Lloyd in [place] (I believe that this who said the name) regarding scheduling the upper endoscopy to look at the esophagus and stomach. Return as needed. I sent your prescriptions to preferred pharmacy. Forms: PCP List Discharge Date/Time: 07/14/23 11:32
[2023-07-14] MEDS: SODIUM CHLORIDE 0.9% 1,000 ML IV STA (09:32)
[2023-07-14] MEDS: HYDROmorphone 0.5 MG/0.5 ML SYRINGE IVP STA ×2 (09:34→10:39)
[2023-07-14] MEDS: GLUCAGON 1 MG/ML VIAL IVP STA (09:35)
[2023-07-14 09:38] LABS: BASOPHILS % (AUTO) 0.9 %; EOSINOPHILS # (AUTO) 0.4 10^3/uL (0.0-0.7); EOSINOPHILS % (AUTO) 7.6 %; HCT - HEMATOCRIT 40.4 % (37.0-47.0); HGB - HEMOGLOBIN 12.8 g/dL (12.0-16.0); LYMPHOCYTES # (AUTO) 1.5 10^3/uL (1.5-3.5); LYMPHOCYTES % (AUTO) 32.7 %; MEAN CORPUSCULAR HEMOGLOBIN 25.5 pg (27.0-31.0); MEAN CORPUSCULAR HGB CONC 31.7 g/dL (32.0-36.0); MEAN CORPUSCULAR VOLUME 80.6 fL (81.0-99.0); MEAN PLATELET VOLUME 9.4 fL (7.9-10.8); MONOCYTES # (AUTO) 0.2 10^3/uL (0.0-1.0); NEUTROPHILS # (AUTO) 2.5 10^3/uL (1.5-6.6); NEUTROPHILS % (AUTO) 53.8 %; PLT - PLATELET COUNT 188 10^3/uL (130-450); RED BLOOD COUNT 5.01 10^6/uL (4.20-5.40); RED CELL DISTRIBUTION WIDTH 13.2 % (12.0-15.0); WHITE BLOOD COUNT 4.6 x10^3/uL (4.8-10.8)
[2023-07-14 09:52] LABS: ALBUMIN 4.1 g/dL (3.2-5.5); ALBUMIN/GLOBULIN RATIO 1.5 (1.0-2.2); ALKALINE PHOSPHATASE 50 IU/L (42-121); ALT ALANINE AMINOTRANSFERASE 10 IU/L (10-60); AST ASPARTATE AMINOTRANSFERASE 13 IU/L (10-42); BILIRUBIN,TOTAL 0.4 mg/dL (0.2-1.0); BUN - BLOOD UREA NITROGEN 14 mg/dL (6-20); CALCIUM 9.5 mg/dL (8.5-10.3); CARBON DIOXIDE - CO2 26 mmol/L (21-32); CHLORIDE 103 mmol/L (101-111); CREATININE 1.1 mg/dL (0.6-1.3); ETOH - ETHANOL < 10.0 mg/dL; GFR - MDRD 52 (>89); GLUCOSE 100 mg/dL (74-104); LIPASE 12 U/L (11-82); MAGNESIUM 1.7 mg/dL (1.7-2.3); POTASSIUM 3.6 mmol/L (3.5-4.5); SODIUM 137 mmol/L (135-145); TOTAL PROTEIN 6.9 g/dL (6.4-8.9)
[2023-07-14] MEDS: FAMOTIDINE 20 MG/2 ML VIAL IVP STA (10:39)
[2023-07-14 11:23] VITALS: O2SAT 100
[2023-07-14 11:51] VITALS: BP 130/82
== END 2023-07-14 11:32 | disposition home or self-care (01) ==
LOC: ED 08:32
DX: T17.228A Food in pharynx causing other injury, initial encounter (principal); W44.F3XA Food entering into or through a natural orifice, initial encounter; K20.90 Esophagitis, unspecified without bleeding; I10 Essential (primary) hypertension; Z79.899 Other long term (current) drug therapy
CPT/HCPCS: 36415; 80053; 82077; 83690; 83735; 85025; 96374; 96375; 99283; J1170; J1610